=== PATIENT | female | born 1950 | race Caucasian/White ===

== ENCOUNTER 2018-01-08 02:09 | Inpatient (IN) | END 2018-01-11 14:38 | disposition home or self-care (01) | DRG 440 ==

== ENCOUNTER 2018-02-03 12:17 | Inpatient (IN) | END 2018-02-04 10:00 | disposition home or self-care (01) | DRG 690 ==

== ENCOUNTER 2018-02-23 11:27 | Emergency (ER) | payer OTHER ==
[~2018-02-23] VITALS: Wt 62.4 kg
[~2018-02-23 11:27] MED LIST: AMLO-218 PO; APIX5TAB PO; CARI350T29 PO; GABA100C14 PO; HYDR12.58 PO; LORA10TA3 PO; NITR0.4T32 SL; OMEP40CA6 PO; SULF-182 PO
[2018-02-23] MEDS ORDERED: morphine 4 MG/ML VIAL IV STA (14:46)
[2018-02-23] MEDS ORDERED: SOD CHLORIDE 0.9% 500 ML IV STA (14:46)
--- NOTE | 2018-02-23 15:04 | ERD ---
ER Documentation Chief Complaint Chief Complaint FEVER, DIARRHEA WITH LEFT SIDED FLANK PAIN HPI 67-year-old female presenting with left-sided abdominal pain that radiates across her abdomen with associated nonbloody diarrhea. She denies any associated nausea or vomiting. The pain is aching, constant, 7 out of 10, with no alleviating or exacerbating factors. She was unable to take her temperature at home but does complain of associated chills. Per her , they called Dr. Hernandez's office as she is under his care for her cholelithiasis. He states that he was told that she needed emergency surgery. It is unclear why. is unable to further elaborate. Patient denies any dysuria or hematuria. She does have a history of gallstones and is planned for outpatient surgery. ROS All systems reviewed and are negative except as per history of present illness. Medications Home Meds Active Scripts Apixaban* (Eliquis*) 5 Mg Tablet, 5 MG PO BID, #74 TAB take 2 tablets (10mg) twice daily for 7 days and then 1 tablet twice daily after that. Prov:SUYAPA WHELAN 01/11/18 Reported Medications Loratadine* (Loratadine*) 10 Mg Tablet, 10 MG PO DAILY, #30 TAB 01/08/18 Amlodipine Besylate* (Norvasc*) 10 Mg Tablet, 10 MG PO DAILY, TAB 01/08/18 Hydrochlorothiazide* (Hydrochlorothiazide*) 12.5 Mg Tablet, 12.5 MG PO DAILY, #30 TAB 01/08/18 Nitroglycerin* (Nitroglycerin* SL) 0.4 Mg Tab.subl, 0.4 MG SL Q5MIN PRN for CHEST PAIN, BOTTLE 01/08/18 Omeprazole* (Omeprazole*) 40 Mg Capsule.dr, 40 MG PO DAILY, #30 CAP 01/08/18 Gabapentin* (Gabapentin*) 100 Mg Capsule, 100 MG PO TID, #90 CAP 01/08/18 Carisoprodol* (Carisoprodol*) 350 Mg Tablet, 350 MG PO Q HS PRN for MUSCLE SPASMS, TAB 01/08/18 Discontinued Scripts Sulfamethoxazole/Trimethoprim (Sulfamethoxazole-Tmp Ds Tablet) 1 Each Tablet, 1 TAB PO BID for 5 Days, #10 TAB Prov:YASMIN DAVIS MD 02/04/18 Allergies Allergies: Coded Allergies: No Known Allergy (Unverified , 01/08/18) PMhx/Soc History of Surgery: No Anesthesia Reaction: No Hx Neurological Disorder: Yes (NEUROPATHY) Hx Respiratory Disorders: No Hx Cardiac Disorders: Yes (Cardiac disease, Hypertension, DVT, hypokalemia) Hx Psychiatric Problems: No Hx Miscellaneous Medical Probl: Yes (Biliary colic, Pancreatitis) Hx Alcohol Use: No Hx Substance Use: No Hx Tobacco Use: No FmHx Family History: No diabetes Physical Exam Vitals Vital Signs Date Temp Pulse Resp B/P (MAP) Pulse Ox O2 O2 Flow FiO2 Time Delivery Rate 02/23/18 98.1 77 15 112/57 97 Room Air 17:20 (75) 02/23/18 97.7 71 18 109/60 95 Room Air 15:53 (76) 02/23/18 98.1 88 18 131/75 99 11:32 (93) Physical Exam Const: No acute distress, well-appearing, nontoxic Head: Atraumatic Eyes: Normal Conjunctiva ENT: Normal External Ears, Nose and Mouth. Neck: Full range of motion. No meningismus. Resp: Clear to auscultation bilaterally Cardio: Regular rate and rhythm, no murmurs Abd: Soft, tender to palpation in left abdomen, non distended. No RUQ tenderness, negative Dyer's sign, no McBurney's pt tenderness. Normal bowel sounds Skin: No petechiae or rashes Back: No midline or flank tenderness Ext: No cyanosis, or edema Neur: Awake and alert Psych: Normal Mood and Affect Result Diagram: 02/23/18 1445 02/23/18 1445 Results 24 hrs Laboratory Tests Test 02/23/18 14:45 02/23/18 15:11 White Blood Count 6.4 10^3/ul Red Blood Count 4.50 10^6/ul Hemoglobin 12.0 g/dl Hematocrit 37.0 % Mean Corpuscular Volume 82.2 fl Mean Corpuscular Hemoglobin 26.7 pg Mean Corpuscular Hemoglobin Concent 32.4 g/dl Red Cell Distribution Width 12.9 % Platelet Count 191 10^3/UL Mean Platelet Volume 9.7 fl Immature Granulocytes % 0.300 % Neutrophils % 71.5 % Lymphocytes % 19.5 % Monocytes % 7.3 % Eosinophils % 0.9 % Basophils % 0.5 % Nucleated Red Blood Cells % 0.0 /100WBC Immature Granulocytes # 0.020 10^3/ul Neutrophils # 4.6 10^3/ul Lymphocytes # 1.3 10^3/ul Monocytes # 0.5 10^3/ul Eosinophils # 0.1 10^3/ul Basophils # 0.0 10^3/ul Nucleated Red Blood Cells # 0.0 10^3/ul Sodium Level 141 mmol/L Potassium Level 3.2 mmol/L Chloride Level 98 mmol/L Carbon Dioxide Level 33 mmol/L Anion Gap 10 Blood Urea Nitrogen 13 mg/dl Creatinine 0.63 mg/dl Est Glomerular Filtrat Rate mL/min > 60 mL/min Glucose Level 102 mg/dl Calcium Level 9.1 mg/dl Total Bilirubin 0.3 mg/dl Direct Bilirubin 0.00 mg/dl Indirect Bilirubin 0.3 mg/dl Aspartate Amino Transf (AST/SGOT) 40 IU/L Alanine Aminotransferase (ALT/SGPT) 37 IU/L Alkaline Phosphatase 83 IU/L Total Protein 7.7 g/dl Albumin 4.2 g/dl Globulin 3.50 g/dl Albumin/Globulin Ratio 1.20 Lipase 36 U/L Urine Color YELLOW Urine Clarity CLEAR Urine pH 7.0 Urine Specific [place] 1.009 Urine Ketones 1+ mg/dL Urine Nitrite NEGATIVE mg/dL Urine Bilirubin NEGATIVE mg/dL Urine Urobilinogen NEGATIVE mg/dL Urine Leukocyte Esterase 1+ Morris/ul Urine Microscopic RBC 3 /HPF Urine Microscopic WBC 6 /HPF Urine Hemoglobin 1+ mg/dL Urine Glucose NEGATIVE mg/dL Urine Total Protein NEGATIVE mg/dl Current Medications Medications Dose Sig/Yanet Start Time Status Last (Trade) Ordered Route PRN Stop Time Admin Dose Reason Admin Sodium 500 ml @ Q1H STAT 02/23/18 DC 02/23/18 Chloride 500 mls/hr IV 14:46 14:54 02/23/18 15:45 Morphine 4 mg ONCE STAT 02/23/18 DC 02/23/18 Sulfate IV 14:46 14:54 (morphine) 02/23/18 14:47 Potassium 40 meq ONCE STAT 02/23/18 DC 02/23/18 Chloride PO 16:47 17:16 (Klor-Con 20) 02/23/18 16:49 Procedures/MDM EMERGENT LABS AND DIAGNOSTIC STUDIES: Lab Results above were reviewed and interpreted by me. CBC: no anemia or evidence of infection CMP: mild hypokalemia. No evidence of renal failure, hypoglycemia, liver failure, or biliary obstruction Lipase: no evidence of pancreatitis UA: few WBCs, asymptomatic Radiology Results as interpreted by Radiology below were reviewed by Ceasar Stephen MD: CT Abdomen/Pelvis: IMPRESSION: 1. Findings suggestive of mild colitis, predominantly involving ascending colon and splenic flexure. 2. Colonic diverticulosis, without diverticulitis. 3. Status post hysterectomy. 4. No evidence of mass or lymphadenopathy. Chest x-ray shows no acute abnormalities Initial Nursing notes reviewed. Previous Medical Records requested via the Electronic Health Record. EMERGENCY DEPARTMENT COURSE / MEDICAL DECISION MAKING: Patient is presenting with left-sided abdominal pain and diarrhea. Vitals are stable and she is afebrile. CT does not show any signs of acute surgical abdomen. Labs are unremarkable other than mild hypokalemia, likely secondary to her diarrhea, for which she was given oral potassium supplementation. IV fluids and IV medications for pain were given with improvement of her symptoms. I feel the patient most likely has a viral gastroenteritis rather than a bacterial colitis. I recommended oral hydration and [id number] medications for pain control. I reassured her and her that she does not have an emergent surgical condition at this time. However if any of her symptoms worsen, she was instructed to return to the ER for reevaluation. Patient's blood pressure was elevated (>120/80) but appears stable without evidence of hypertensive emergency or urgency. The patient was counseled about the risks of hypertension and urged to pursue outpatient monitoring and therapy within a week with their primary care physician. Departure Diagnosis: Primary Impression: Abdominal pain Abdominal location: generalized Qualified Codes: R10.84 - Generalized abdominal pain Additional Impressions: Acute hypokalemia Colitis Condition: Stable EKEVERT PATINO MD Feb 23, 2018 15:04
[2018-02-23] MEDS ORDERED: POTASSIUM CHLORIDE (SR) 20 MEQ TAB PO STA (16:47)
[2018-02-23 17:20] VITALS: BP 112/57; PULSE 77; RESP 15
== END 2018-02-23 17:20 | disposition home or self-care (01) ==
LOC: E/R 11:27
DX: E87.6 Hypokalemia (principal); K52.9 Noninfective gastroenteritis and colitis, unspecified; I10 Essential (primary) hypertension
CPT/HCPCS: 71045; 74176; 80053; 81001; 83690; 85025; 96361; 96374; 99285; J2270; J7040

== ENCOUNTER 2018-04-01 15:31 | Inpatient (IN) | payer OTHER ==
[~2018-04-01] VITALS: Ht 154.9 cm; Wt 61.9 kg
[~2018-04-01 15:31] MED LIST changes: -SULF-182 PO
[2018-04-01] MEDS ORDERED: morphine 4 MG/ML VIAL IV STA (18:19)
[2018-04-01] MEDS ORDERED: ONDANSETRON 4 MG INJ IV STA ×2 (18:19→20:05)
[2018-04-01] MEDS ORDERED: SOD CHLORIDE 0.9% 1,000 ML IV STA ×2 (18:19→20:05)
--- NOTE | 2018-04-01 18:30 | ERD ---
ER Documentation Chief Complaint Chief Complaint pt bib family with c/o abd pain staring at noon HPI This is a 67-year-old female presents to the emergency department complaining of abdominal pain. The patient indicates that the abdominal pain is present in the left lower quadrant and right upper quadrant. She indicates that it is aggressively worsened over the past 6 hours. The patient has known history of cholelithiasis and has seen the surgeon Dr. Hernandez. She is currently waiting for outpatient cholecystectomy. She states that the pain is 10 out of 10 in intensity. She denies any hemoptysis no hematemesis and no melanotic stools. He said no fevers or shaking or chills. She denies any chest pain or pressure no shortness of breath at rest or exertion. She states the pain is cramping- like sensation in both the right upper quadrant and left lower quadrant. The pain does not radiate to her back. She said no frequency urgency or dysuria. ROS All systems reviewed and are negative except as per history of present illness. Medications Home Meds Active Scripts Apixaban* (Eliquis*) 5 Mg Tablet, 5 MG PO BID, #74 TAB take 2 tablets (10mg) twice daily for 7 days and then 1 tablet twice daily after that. Prov:SUYAPA WHELAN 01/11/18 Reported Medications Loratadine* (Loratadine*) 10 Mg Tablet, 10 MG PO DAILY, #30 TAB 01/08/18 Amlodipine Besylate* (Norvasc*) 10 Mg Tablet, 10 MG PO DAILY, TAB 01/08/18 Hydrochlorothiazide* (Hydrochlorothiazide*) 12.5 Mg Tablet, 12.5 MG PO DAILY, #30 TAB 01/08/18 Nitroglycerin* (Nitroglycerin* SL) 0.4 Mg Tab.subl, 0.4 MG SL Q5MIN PRN for CHEST PAIN, BOTTLE 01/08/18 Omeprazole* (Omeprazole*) 40 Mg Capsule.dr, 40 MG PO DAILY, #30 CAP 01/08/18 Gabapentin* (Gabapentin*) 100 Mg Capsule, 100 MG PO TID, #90 CAP 01/08/18 Carisoprodol* (Carisoprodol*) 350 Mg Tablet, 350 MG PO Q HS PRN for MUSCLE SPASMS, TAB 01/08/18 Allergies Allergies: Coded Allergies: No Known Allergy (Unverified , 01/08/18) PMhx/Soc History of Surgery: No Anesthesia Reaction: No Hx Neurological Disorder: Yes (NEUROPATHY) Hx Respiratory Disorders: No Hx Cardiac Disorders: Yes (Cardiac disease, Hypertension, DVT, hypokalemia) Hx Psychiatric Problems: No Hx Miscellaneous Medical Probl: Yes (Biliary colic, Pancreatitis) Hx Alcohol Use: No Hx Substance Use: No Hx Tobacco Use: No Physical Exam Vitals Vital Signs Date Temp Pulse Resp B/P (MAP) Pulse Ox O2 O2 Flow FiO2 Time Delivery Rate 04/01/18 98.3 84 18 120/67 99 15:43 (84) Physical Exam Constitutional:Well-developed. Well-nourished. HEENT:Normocephalic. Atraumatic.Pupils were equal round reactive to light. Moist mucous membranes.No tonsillar exudates. Neck: No nuchal rigidity. No lymphadenopathy. No posterior cervical spine tenderness or step-offs. Respiratory: Not using accessory muscles of respiration.Lungs were clear to auscultation bilaterally. No rhonchi. No rales. No wheezing. Cardiovascular: Regular rate regular rhythm.No murmurs. No rubs were appreciated.S1, S2 normal. Distal pulses are palpable 2+ bilaterally. GI: Abdomen was soft. Left lower quadrant tenderness. Tenderness in the right upper quadrant negative Dyer sign. No tenderness the right lower quadrant over McBurney's point. Psoas sign negative. Obturator sign negative.. Non Distended. No pulsatile abdominal masses or bruits. No rebound. No guarding. Bowel sounds were present and normal. Muscle skeletal: Full range of motion of both the upper and lower extremities bilaterally.Normal muscle tone.No assymetrical calf tenderness or swelling. Skin: No petechia, no purpura. No lesions on the palms or the soles of the feet. No maculopapular rash. NEURO: Patient was alert, awake, orientated x3.No facial droop. Gait observed and normal with no ataxia.Speech had regular rate and rhythm. No focal neurologi carlos deficits. Result Diagram: 04/01/18190604/01/181905 Results 24 hrs Laboratory Tests Test 04/01/18 19:06 04/01/18 19:07 Prothrombin Time 11.9 Sec Prothrombin Time Ratio 0.9 INR International Normalized Ratio 0.87 Activated Partial Thromboplast Time 26.6 Sec Urine Color YELLOW Urine Clarity CLEAR Urine pH 8.0 Urine Specific [place] 1.011 Urine Ketones NEGATIVE mg/dL Urine Nitrite NEGATIVE mg/dL Urine Bilirubin NEGATIVE mg/dL Urine Urobilinogen 2+ mg/dL Urine Leukocyte Esterase NEGATIVE Morris/ul Urine Hemoglobin NEGATIVE mg/dL Urine Glucose NEGATIVE mg/dL Urine Total Protein NEGATIVE mg/dl Sodium Level 140 mmol/L Potassium Level 3.0 mmol/L Chloride Level 99 mmol/L Carbon Dioxide Level 37 mmol/L Anion Gap 4 Blood Urea Nitrogen 17 mg/dl Creatinine 0.77 mg/dl Est Glomerular Filtrat Rate mL/min > 60 mL/min Glucose Level 129 mg/dl Calcium Level 9.6 mg/dl Total Bilirubin 0.4 mg/dl Direct Bilirubin 0.00 mg/dl Indirect Bilirubin 0.4 mg/dl Aspartate Amino Transf (AST/SGOT) 581 IU/L Alanine Aminotransferase (ALT/SGPT) 308 IU/L Alkaline Phosphatase 179 IU/L Troponin I < 0.012 ng/ml Total Protein 7.3 g/dl Albumin 4.2 g/dl Globulin 3.10 g/dl Albumin/Globulin Ratio 1.35 Amylase Level 537 U/L Lipase 5742 U/L White Blood Count 10.7 10^3/ul Red Blood Count 4.64 10^6/ul Hemoglobin 12.3 g/dl Hematocrit 37.8 % Mean Corpuscular Volume 81.5 fl Mean Corpuscular Hemoglobin 26.5 pg Mean Corpuscular Hemoglobin Concent 32.5 g/dl Red Cell Distribution Width 13.4 % Platelet Count 241 10^3/UL Mean Platelet Volume 9.2 fl Immature Granulocytes % 0.600 % Neutrophils % 79.7 % Lymphocytes % 12.8 % Monocytes % 6.6 % Eosinophils % 0.2 % Basophils % 0.1 % Nucleated Red Blood Cells % 0.0 /100WBC Immature Granulocytes # 0.060 10^3/ul Neutrophils # 8.6 10^3/ul Lymphocytes # 1.4 10^3/ul Monocytes # 0.7 10^3/ul Eosinophils # 0.0 10^3/ul Basophils # 0.0 10^3/ul Nucleated Red Blood Cells # 0.0 10^3/ul Current Medications Medications Dose Sig/Yanet Start Time Status Last (Trade) Ordered Route PRN Stop Time Admin Dose Reason Admin Sodium 1,000 ml @ Q1H STAT 04/01/18 DC 04/01/18 Chloride 1,000 mls/hr IV 18:19 19:15 04/01/18 19:18 Morphine 4 mg ONCE STAT 04/01/18 DC 04/01/18 Sulfate IV 18:19 19:15 (morphine) 04/01/18 18:21 Ondansetron 4 mg ONCE STAT 04/01/18 DC 04/01/18 HCl (Zofran IV 18:19 19:15 Inj) 04/01/18 18:21 Sodium 1,000 ml @ Q1H STAT 04/01/18 DC 04/01/18 Chloride 1,000 mls/hr IV 20:05 20:51 04/01/18 21:04 1 mg ONCE STAT 04/01/18 DC 04/01/18 Hydromorphone IV 20:05 20:51 HCl 04/01/18 20:09 (Dilaudid) Ondansetron 4 mg ONCE STAT 04/01/18 DC 04/01/18 HCl (Zofran IV 20:05 20:51 Inj) 04/01/18 20:09 Ondansetron 4 mg ER BRIDGE 04/01/18 HCl (Zofran PRN IV 20:30 Inj) NAUSEA/VOMITI 04/02/18 20:29 NG 650 mg ER BRIDGE 04/01/18 Acetaminophen PRN PO 20:30 (Tylenol .MILD PAIN 04/02/18 20:29 Tab) 1-3 OR TEMP IV Flush 10 ml STK-MED 04/01/18 DC (NS 10 ml) ONCE .ROUTE 20:50 04/01/18 20:51 Sodium 100 ml @ ud STK-MED 04/01/18 DC Chloride ONCE .ROUTE 20:50 04/01/18 20:51 Iohexol 150 ml STK-MED 04/01/18 DC (Omnipaque ONCE .ROUTE 20:50 300mg/ ml) 04/01/18 20:51 Sodium 1,000 ml @ Q8H IV 04/01/18 UNV Chloride 125 mls/hr 20:56 IV Flush 3 ml PER 04/01/18 UNV (NS 3 ml) PROTOCOL IV 21:00 Ondansetron 4 mg Q6H PRN 04/01/18 UNV HCl (Zofran IV 21:00 Inj) NAUSEA/VOMITI NG 650 mg Q6H PRN 04/01/18 Acetaminophen MS .PAIN 1-3 21:00 (Tylenol OR TEMP Supp) Morphine 2 mg Q4H PRN 04/01/18 UNV Sulfate IV .PAIN 21:00 (morphine) 7-10 40 mg DAILY@06 04/02/18 UNV Pantoprazole IV 06:00 (Protonix Iv) Hydralazine 10 mg Q4H PRN 04/01/18 UNV HCl IV sbp >160 21:00 (Apresoline) Potassium 100 ml @ Q2H IVPB 04/01/18 UNV Chloride 50 mls/hr 21:30 04/02/18 05:29 Procedures/MDM This patient presented to the emergency department with abdominal pain and was seen and evaluated by myself. My differential diagnosis included but was not limited to abdominal aortic aneurysm, appendicitis, pancreatitis, perforated pep tic ulcer, perforated viscus, Boerhaave's syndrome or visceral pain such as diverticulitis, DKA, esophagitis, hepatitis or bowel obstruction. The patient was placed on a parts specialist, continuous pulse oximetry, and IV access was established by nursing staff. The patient was given intravenous mo rphine and Zofran. The patient's liver enzymes were elevated as well as her pancreatic enzymes. ultrasound of the gallbladder did confirm cholelithiasis. I reviewed the records from previous hospital visits and the patient was here roughly 1 month ago for similar pain. She underwent a CT scan of her abdomen that time which did show diverticulosis. However given the recurrent pain I did feel is necessary to repeat the CT scan. This is reviewed by the radiologist myself and indicated the following: The patient will be admitted to the hospitalist. Departure Diagnosis: Primary Impression: Pancreatitis Chronicity: acute Pancreatitis type: unspecified pancreatitis type Acute pancreatitis complication: unspecified Qualified Codes: K85.90 - Acute pancreatitis without necrosis or infection, unspecified Additional Impressions: Cholelithiasis Cholelithiasis location: gallbladder Cholecystitis presence: without cholecystitis Biliary obstruction: without biliary obstruction Qualified Codes: K80.20 - Calculus of gallbladder without cholecystitis without obstruction Intractable abdominal pain Condition: Serious GT ZHOU MD Apr 01, 2018 18:30
[2018-04-01] MEDS ORDERED: HYDROmorphONE 1 MG/ML SYG IV STA (20:05)
[2018-04-01] MEDS ORDERED: ACETAMINOPHEN 325 MG TAB PO PRN (20:30)
[2018-04-01] MEDS ORDERED: ONDANSETRON 4 MG INJ IV PRN ×2 (20:30→21:00)
[2018-04-01] MEDS ORDERED: SOD CHLORIDE 0.9% 100 ML ONE (20:50)
[2018-04-01] MEDS ORDERED: IOHEXOL 300MG/ML 150 ML BTL ONE (20:50)
[2018-04-01] MEDS ORDERED: morphine 2 MG INJ IV PRN (21:00)
[2018-04-01] MEDS ORDERED: hydrALAzine 20 MG INJ IV PRN (21:00)
[2018-04-01] MEDS ORDERED: NACL 0.9% 3 ML SYG IV SCH (21:00)
[2018-04-01] MEDS ORDERED: ACETAMINOPHEN 650 MG SUPP PR PRN (21:00)
--- NOTE | 2018-04-01 21:22 | HP ---
Date/Time of Note Date/Time of Note DATE: 04/01/18 TIME: 21:22 Assessment/Plan VTE Prophylaxis Pharmacological prophylaxis: other Lines/Catheters IV Catheter Type (from Nrs): Saline Lock Assessment/Plan Hospital Course Objective Physical exam General: Patient is laying in bed and answers questions appropriately Mentation: Patient is alert and oriented 4, Head: Normocephalic atraumatic Eyes: EOMI, pupils reactive to light Neck: Supple, nontender, midline Respiratory: Clear to auscultation bilaterally Cardiovascular: regular rate, no obvious murmurs Gastrointestinal: Epigastric and left upper quadrant tenderness to palpation, bowel sounds heard. Neurological: Moves all extremities spontaneously Skin: No new skin lesions Assessment and plan Pancreatitis, possibly gallstone -Bilirubin is normal, however AST and ALT are elevated, possible that it was a gallstone that did pass already, -CT of the abdomen and pelvis is still pending, ultrasound shows gallstones but no cholecystitis, no biliary ductal dilation -Patient was following with Dr. Hernandez in the outpatient setting and was planning on elective gallbladder removal however due to this hospitalization will consult Dr. Hernandez again, recommendations appreciated -GI, Dr. Ocasio, will also be consulted, no clear evidence of obstruction except for mild AST and ALT elevation, MRCP is pending -IV fluid -N.p.o. -Pain control Abdominal pain -Secondary to above Electrolyte derangement -Replete potassium as needed Lower extremity DVT history -On Eliquis, however will hold for possible procedure or surgery tomorrow if GI or surgery decides to. Hypertension -Use as needed medication, resume orals when able GERD -Protonix Disposition -MRCP pending, GI and general surgery consultation pending. Result Diagram: 04/01/18190604/01/181905 Results 24hrs Laboratory Tests Test 04/01/18 19:06 04/01/18 19:07 Prothrombin Time 11.9 Prothrombin Time Ratio 0.9 INR International Normalized Ratio 0.87 Activated Partial Thromboplast Time 26.6 Urine Color YELLOW Urine Clarity CLEAR Urine pH 8.0 Urine Specific [place] 1.011 Urine Ketones NEGATIVE Urine Nitrite NEGATIVE Urine Bilirubin NEGATIVE Urine Urobilinogen 2+ H Urine Leukocyte Esterase NEGATIVE Urine Hemoglobin NEGATIVE Urine Glucose NEGATIVE Urine Total Protein NEGATIVE Sodium Level 140 Potassium Level 3.0 L Chloride Level 99 Carbon Dioxide Level 37 H Anion Gap 4 L Blood Urea Nitrogen 17 Creatinine 0.77 Est Glomerular Filtrat Rate mL/min > 60 Glucose Level 129 Calcium Level 9.6 Total Bilirubin 0.4 Direct Bilirubin 0.00 Indirect Bilirubin 0.4 Aspartate Amino Transf (AST/SGOT) 581 H Alanine Aminotransferase (ALT/SGPT) 308 H Alkaline Phosphatase 179 H Troponin I < 0.012 Total Protein 7.3 Albumin 4.2 Globulin 3.10 Albumin/Globulin Ratio 1.35 Amylase Level 537 H Lipase 5742 H White Blood Count 10.7 # Red Blood Count 4.64 Hemoglobin 12.3 Hematocrit 37.8 Mean Corpuscular Volume 81.5 L Mean Corpuscular Hemoglobin 26.5 L Mean Corpuscular Hemoglobin Concent 32.5 Red Cell Distribution Width 13.4 Platelet Count 241 # Mean Platelet Volume 9.2 Immature Granulocytes % 0.600 H Neutrophils % 79.7 H Lymphocytes % 12.8 L Monocytes % 6.6 Eosinophils % 0.2 Basophils % 0.1 Nucleated Red Blood Cells % 0.0 Immature Granulocytes # 0.060 H Neutrophils # 8.6 H Lymphocytes # 1.4 Monocytes # 0.7 Eosinophils # 0.0 Basophils # 0.0 Nucleated Red Blood Cells # 0.0 HPI/ROS Admit Date/Time Admit Date/Time Hx of Present Illness Patient is a female with a past medical history significant for gallstone pancreatitis, hypertension, lower extremity DVT who presents to [facility] for abdominal pain. Patient states this is exactly the her previous bouts of pancreatitis and pain upon the epigastric region. Patient states pain started approximately 6 hours ago. Patient denies any chest pain, shortness of breath, bowel or bladder dysfunction, nausea vomiting, no fevers. Pain does not radiate to the back PMH/Family/Social Past Medical History Medications Current Medications Ondansetron HCl (Zofran Inj) 4 mg ER BRIDGE PRN IV NAUSEA/VOMITING; Start 04/01/18 at 20:30; Stop 04/02/18 at 20:29 Acetaminophen (Tylenol Tab) 650 mg ER BRIDGE PRN PO .MILD PAIN 1-3 OR TEMP; Start 04/01/18 at 20:30; Stop 04/02/18 at 20:29 Sodium Chloride 1,000 ml @ 125 mls/hr Q8H IV ; Start 04/01/18 at 20:56 IV Flush (NS 3 ml) 3 ml PER PROTOCOL IV ; Start 04/01/18 at 21:00 Ondansetron HCl (Zofran Inj) 4 mg Q6H PRN IV NAUSEA/VOMITING; Start 04/01/18 at 21:00 Acetaminophen (Tylenol Supp) 650 mg Q6H PRN [place] .PAIN 1-3 OR TEMP; Start 03/16 08/31 at 21:00 Morphine Sulfate (morphine) 2 mg Q4H PRN IV .PAIN 7-10; Start 04/01/18 at 21:00 Pantoprazole (Protonix Iv) 40 mg DAILY@06 IV ; Start 04/02/18 at 06:00 Hydralazine HCl (Apresoline) 10 mg Q4H PRN IV sbp >160; Start 04/01/18 at 21:00 Potassium Chloride 100 ml @ 50 mls/hr Q2H IVPB ; Start 04/01/18 at 21:30; Stop 04/02/18 at 05:29 Coded Allergies: No Known Allergy (Unverified , 01/08/18) Past Surgical History Past Surgical Hx: other Family History Significant Family History: no pertinent family hx Social History Smoking Status: Never smoker Exam/Review of Systems Vital Signs Vitals Vital Signs Date Temp Pulse Resp B/P (MAP) Pulse Ox O2 O2 Flow FiO2 Time Delivery Rate 04/01/18 73 12 110/65 98 Room Air 21:16 (80) 04/01/18 98.3 15:43 MICAELA MCCRAY Apr 01, 2018 21:22
[2018-04-01 21:45] VITALS: BP 125/57; PULSE 73; RESP 20
[2018-04-01 21:47] VITALS: PULSE 68
[2018-04-01 22:06] VITALS: Ht 154.9 cm; Wt 61.9 kg
[2018-04-01] MEDS: SOD CHLORIDE 0.9% 1,000 ML IV SCH (22:27)
[2018-04-01] MEDS: POTASSIUM CHLORIDE 100 ML IVPB SCH (22:27)
[2018-04-01 23:47] VITALS: BP 112/55; PULSE 65; RESP 18
[2018-04-02] VITALS (10 sets, daily range): BP systolic 89–123; BP diastolic 53–64; PULSE 59–69; RESP 18–19
[2018-04-02] MEDS: POTASSIUM CHLORIDE 100 ML IVPB SCH ×3 (00:24→05:30)
[2018-04-02] MEDS: SOD CHLORIDE 0.9% 1,000 ML IV SCH ×4 (04:56→23:54)
[2018-04-02] MEDS: PANTOPRAZOLE 40 MG INJ IV SCH (05:31)
--- NOTE | 2018-04-02 10:29 | PN ---
Date/Time of Note Date/Time of Note DATE: 04/02/18 TIME: 10:24 Assessment/Plan VTE Prophylaxis Risk score (from Nsg)>0 risk: 6 SCD applied (from Nsg): Yes Pharmacological prophylaxis: LMWH Lines/Catheters IV Catheter Type (from Nrsg): Peripheral IV Assessment/Plan Hospital Course Objective: pain is better, wants to know what time her surgery will be done Physical exam General: Patient is laying in bed and answers questions appropriately Mentation: Patient is alert and oriented 4, Head: Normocephalic atraumatic Eyes: EOMI, pupils reactive to light Neck: Supple, nontender, midline Respiratory: Clear to auscultation bilaterally Cardiovascular: regular rate, no obvious murmurs Gastrointestinal: Epigastric and left upper quadrant tenderness to palpation, bowel sounds heard. Neurological: Moves all extremities spontaneously Skin: No new skin lesions Assessment and plan 1. Recurrent Pancreatitis, possibly gallstone -Bilirubin is normal, however AST and ALT are elevated, possible that it was a gallstone that did pass already, -CT of the abdomen and pelvis negative for acute process , ultrasound shows gallstones but no cholecystitis, no biliary ductal dilation -Patient was following with Dr. Hernandez in the outpatient setting and was planning on elective gallbladder removal prior to this hospitalization, await review and recommendations appreciated -f/u MRCP -Continue IV fluid -Continue N.p.o. /PPI -Pain control -spoke with sx, has to be off eliquis for at least 3 days 2. Abdominal pain -Secondary to above 3. Electrolyte derangement -Replete potassium as needed 4. Lower extremity DVT history -On Eliquis, however will hold for possible procedure or surgery tomorrow if GI or surgery decides to. -repeat LE dopplers 5. Hypertension -resume home meds 6. h/o GERD -Protonix Disposition -f/u MRCP, lipase levels and surgical recs Result Diagram: 04/02/18 0612 04/02/18 0612 Results 24hrs Laboratory Tests Test 04/01/18 19:06 04/01/18 19:07 04/02/18 06:12 Prothrombin Time 11.9 Prothrombin Time Ratio 0.9 INR International Normalized Ratio 0.87 Activated Partial Thromboplast Time 26.6 Urine Color YELLOW Urine Clarity CLEAR Urine pH 8.0 Urine Specific [place] 1.011 Urine Ketones NEGATIVE Urine Nitrite NEGATIVE Urine Bilirubin NEGATIVE Urine Urobilinogen 2+ H Urine Leukocyte Esterase NEGATIVE Urine Hemoglobin NEGATIVE Urine Glucose NEGATIVE Urine Total Protein NEGATIVE Sodium Level 140 141 Potassium Level 3.0 L 4.2 Chloride Level 99 103 Carbon Dioxide Level 37 H 29 Anion Gap 4 L 9 # Blood Urea Nitrogen 17 9 Creatinine 0.77 0.60 Est Glomerular Filtrat Rate mL/min > 60 > 60 Glucose Level 129 104 Calcium Level 9.6 8.7 Total Bilirubin 0.4 0.5 Direct Bilirubin 0.00 0.00 Indirect Bilirubin 0.4 0.5 Aspartate Amino Transf (AST/SGOT) 581 H 233 H Alanine Aminotransferase (ALT/SGPT) 308 H 273 H Alkaline Phosphatase 179 H 132 H Troponin I < 0.012 Total Protein 7.3 6.6 Albumin 4.2 3.7 Globulin 3.10 2.90 Albumin/Globulin Ratio 1.35 1.27 Amylase Level 537 H Lipase 5742 H White Blood Count 10.7 # 7.0 # Red Blood Count 4.64 4.12 L Hemoglobin 12.3 11.1 L Hematocrit 37.8 34.2 L Mean Corpuscular Volume 81.5 L 83.0 Mean Corpuscular Hemoglobin 26.5 L 26.9 L Mean Corpuscular Hemoglobin Concent 32.5 32.5 Red Cell Distribution Width 13.4 13.6 Platelet Count 241 # 240 Mean Platelet Volume 9.2 9.8 Immature Granulocytes % 0.600 H 0.300 Neutrophils % 79.7 H 71.0 Lymphocytes % 12.8 L 19.7 Monocytes % 6.6 7.7 Eosinophils % 0.2 1.0 Basophils % 0.1 0.3 Nucleated Red Blood Cells % 0.0 0.0 Immature Granulocytes # 0.060 H 0.020 Neutrophils # 8.6 H 5.0 Lymphocytes # 1.4 1.4 Monocytes # 0.7 0.5 Eosinophils # 0.0 0.1 Basophils # 0.0 0.0 Nucleated Red Blood Cells # 0.0 0.0 Magnesium Level 1.9 Triglycerides Level 65 Cholesterol Level 176 LDL Cholesterol, Calculated 103 HDL Cholesterol 60 Cholesterol/HDL Ratio 2.9 Exam/Review of Systems Exam Vitals Vital Signs Date Temp Pulse Resp B/P (MAP) Pulse Ox O2 O2 Flow FiO2 Time Delivery Rate 04/02/18 97.9 62 19 123/59 100 08:27 (80) 04/01/18 Room Air 21:45 Intake and Output 04/01/18 04/01/18 04/02/18 1515:00 23:00 07:00 IntakeIntake Total 1000 ml 1000 ml BalanceBalance 1000 ml 1000 ml Results Results 24hrs Laboratory Tests Test 04/01/18 19:06 04/01/18 19:07 04/02/18 06:12 Prothrombin Time 11.9 Prothrombin Time Ratio 0.9 INR International Normalized Ratio 0.87 Activated Partial Thromboplast Time 26.6 Urine Color YELLOW Urine Clarity CLEAR Urine pH 8.0 Urine Specific [place] 1.011 Urine Ketones NEGATIVE Urine Nitrite NEGATIVE Urine Bilirubin NEGATIVE Urine Urobilinogen 2+ H Urine Leukocyte Esterase NEGATIVE Urine Hemoglobin NEGATIVE Urine Glucose NEGATIVE Urine Total Protein NEGATIVE Sodium Level 140 141 Potassium Level 3.0 L 4.2 Chloride Level 99 103 Carbon Dioxide Level 37 H 29 Anion Gap 4 L 9 # Blood Urea Nitrogen 17 9 Creatinine 0.77 0.60 Est Glomerular Filtrat Rate mL/min > 60 > 60 Glucose Level 129 104 Calcium Level 9.6 8.7 Total Bilirubin 0.4 0.5 Direct Bilirubin 0.00 0.00 Indirect Bilirubin 0.4 0.5 Aspartate Amino Transf (AST/SGOT) 581 H 233 H Alanine Aminotransferase (ALT/SGPT) 308 H 273 H Alkaline Phosphatase 179 H 132 H Troponin I < 0.012 Total Protein 7.3 6.6 Albumin 4.2 3.7 Globulin 3.10 2.90 Albumin/Globulin Ratio 1.35 1.27 Amylase Level 537 H Lipase 5742 H White Blood Count 10.7 # 7.0 # Red Blood Count 4.64 4.12 L Hemoglobin 12.3 11.1 L Hematocrit 37.8 34.2 L Mean Corpuscular Volume 81.5 L 83.0 Mean Corpuscular Hemoglobin 26.5 L 26.9 L Mean Corpuscular Hemoglobin Concent 32.5 32.5 Red Cell Distribution Width 13.4 13.6 Platelet Count 241 # 240 Mean Platelet Volume 9.2 9.8 Immature Granulocytes % 0.600 H 0.300 Neutrophils % 79.7 H 71.0 Lymphocytes % 12.8 L 19.7 Monocytes % 6.6 7.7 Eosinophils % 0.2 1.0 Basophils % 0.1 0.3 Nucleated Red Blood Cells % 0.0 0.0 Immature Granulocytes # 0.060 H 0.020 Neutrophils # 8.6 H 5.0 Lymphocytes # 1.4 1.4 Monocytes # 0.7 0.5 Eosinophils # 0.0 0.1 Basophils # 0.0 0.0 Nucleated Red Blood Cells # 0.0 0.0 Magnesium Level 1.9 Triglycerides Level 65 Cholesterol Level 176 LDL Cholesterol, Calculated 103 HDL Cholesterol 60 Cholesterol/HDL Ratio 2.9 Medications Medication Current Medications Ondansetron HCl (Zofran Inj) 4 mg ER BRIDGE PRN IV NAUSEA/VOMITING; Start 04/01/18 at 20:30; Stop 04/02/18 at 20:29 Acetaminophen (Tylenol Tab) 650 mg ER BRIDGE PRN PO .MILD PAIN 1-3 OR TEMP; Start 04/01/18 at 20:30; Stop 04/02/18 at 20:29 Sodium Chloride 1,000 ml @ 125 mls/hr Q8H IV Last administered on 04/01/18at 22:27; Admin Dose 125 MLS/HR; Start 04/01/18 at 20:56 IV Flush (NS 3 ml) 3 ml PER PROTOCOL IV ; Start 04/01/18 at 21:00 Ondansetron HCl (Zofran Inj) 4 mg Q6H PRN IV NAUSEA/VOMITING; Start 04/01/18 at 21:00 Acetaminophen (Tylenol Supp) 650 mg Q6H PRN [place] .PAIN 1-3 OR TEMP; Start 04/01/18 at 21:00 Morphine Sulfate (morphine) 2 mg Q4H PRN IV .PAIN 7-10; Start 04/01/18 at 21:00 Pantoprazole (Protonix Iv) 40 mg DAILY@06 IV Last administered on 04/02/18at 05:31; Admin Dose 40 MG; Start 04/02/18 at 06:00 Hydralazine HCl (Apresoline) 10 mg Q4H PRN IV sbp >160; Start 04/01/18 at 21:00 SUYAPA WHELAN Apr 02, 2018 10:29
[2018-04-02] MEDS: AMLODIPINE 10 MG TAB PO SCH (10:48)
[2018-04-02] MEDS: HYDROCHLOROTHIAZIDE 12.5 MG CAP PO SCH (10:48)
[2018-04-02] MEDS: GABAPENTIN 100 MG CAP PO SCH ×2 (13:14→21:01)
--- NOTE | 2018-04-02 14:59 | CONS ---
Assessment/Plan Assessment/Plan Assessment/Plan (Daily) Summary Assessment and Plan: Assessment: Gallstone pancreatitis -MRCP pending to rule out choledocholithiasis DVT - on eliquis HTN Pyrosis- on PPI Plan: MRCP pending Keep n.p.o./IV fluids- Monitor labs If MRCP is positive we will move forward ERCP. Surgical consult for possible cholecystectomy- given recurrent gallstone pancreatitis Patient seen in collaboration with Dr. Wilson CC: ANANT WILSON ; Consultation Date/Type/Reason Admit Date/Time Date of Consultation: Apr 02, 2018 Type of Consult GI Reason for Consultation Gallstone pancreatitis Date/Time of Note DATE: 04/02/18 TIME: 14:56 Hx of Present Illness This is a 67-year-old female vwith past medical history of DVT, attention, and recurrence gallstone pancreatitis. Who presented to [facility] with progressive upper abdominal pain patient states this is exactly how her pancreatitis felt previously. GI has been consulted for further evaluation. Currently an MRCP is pending to rule out choledocholithiasis AST/ALT/alkaline phosphatase trending down from yesterday, of note bilirubin has been normal both days. Initially patient with elevated amylase and lipase. Today lipase is within normal limits however patient continues to complain of upper abdominal pain. Will await results of MRCP if positive we will move forward with ERCP Review of Systems: [A 12 system, review was conducted and is negative except as noted in the HPI or here.] Gastrointestinal and liver: [As noted in HPI] [positive for:] [Negative for: Anorexia, dysphagia, odynophagia, pyrosis, regurgitation, nausea, vomiting, early satiety, bloating, abdominal pain, food intolerance, diarrhea, constipation, change in bowel habits, laxative use, hematemesis, melena, hematochezia, and rectal symptoms, incontinence, jaundice.] Past Medical History Home Meds Active Scripts Apixaban* (Eliquis*) 5 Mg Tablet, 5 MG PO BID, #74 TAB take 2 tablets (10mg) twice daily for 7 days and then 1 tablet twice daily after that. Prov:YUKI WHELANJanae Camargo 01/11/18 Reported Medications Loratadine* (Loratadine*) 10 Mg Tablet, 10 MG PO DAILY, #30 TAB 01/08/18 Amlodipine Besylate* (Norvasc*) 10 Mg Tablet, 10 MG PO DAILY, TAB 01/08/18 Hydrochlorothiazide* (Hydrochlorothiazide*) 12.5 Mg Tablet, 12.5 MG PO DAILY, #30 TAB 01/08/18 Nitroglycerin* (Nitroglycerin* SL) 0.4 Mg Tab.subl, 0.4 MG SL Q5MIN PRN for CHEST PAIN, BOTTLE 01/08/18 Omeprazole* (Omeprazole*) 40 Mg Capsule.dr, 40 MG PO DAILY, #30 CAP 01/08/18 Gabapentin* (Gabapentin*) 100 Mg Capsule, 100 MG PO TID, #90 CAP 01/08/18 Carisoprodol* (Carisoprodol*) 350 Mg Tablet, 350 MG PO Q HS PRN for MUSCLE SPASMS, TAB 01/08/18 Medications Current Medications Sodium Chloride 1,000 ml @ 125 mls/hr Q8H IV Last administered on 04/02/18at 13:00; Admin Dose 125 MLS/HR; Start 04/01/18 at 20:56 IV Flush (NS 3 ml) 3 ml PER PROTOCOL IV ; Start 04/01/18 at 21:00 Ondansetron HCl (Zofran Inj) 4 mg Q6H PRN IV NAUSEA/VOMITING; Start 04/01/18 at 21:00 Acetaminophen (Tylenol Supp) 650 mg Q6H PRN [place] .PAIN 1-3 OR TEMP; Start 04/01/18 at 21:00 Morphine Sulfate (morphine) 2 mg Q4H PRN IV .PAIN 7-10; Start 04/01/18 at 21:00 Pantoprazole (Protonix Iv) 40 mg DAILY@06 IV Last administered on 04/02/18at 05:31; Admin Dose 40 MG; Start 04/02/18 at 06:00 Hydralazine HCl (Apresoline) 10 mg Q4H PRN IV sbp >160; Start 04/01/18 at 21:00 Amlodipine Besylate (Norvasc) 10 mg DAILY PO Last administered on 04/02/18at 10:48; Admin Dose 10 MG; Start 04/02/18 at 10:30 Gabapentin (Neurontin) 100 mg TID PO Last administered on 04/02/18at 13:14; Admin Dose 100 MG; Start 04/02/18 at 13:00 Hydrochlorothiazide (Hydrochlorothiazide) 12.5 mg DAILY PO Last administered on 04/02/18at 10:48; Admin Dose 12.5 MG; Start 04/02/18 at 10:30 Allergies: Coded Allergies: No Known Allergy (Unverified , 01/08/18) Past Surgical History Past Surgical Hx: other Social History Smoking Status: Never smoker Exam/Review of Systems Exam Vitals Vital Signs Date Temp Pulse Resp B/P (MAP) Pulse Ox O2 O2 Flow FiO2 Time Delivery Rate 04/02/18 66 12:00 04/02/18 98.6 19 89/53 (65) 97 11:46 04/01/18 Room Air 21:45 Intake and Output 04/01/18 04/01/18 04/02/18 1414:59 22:59 06:59 IntakeIntake Total 1000 ml 1000 ml BalanceBalance 1000 ml 1000 ml Constitutional: alert, oriented Psych: no complaints, nl mood/affect Head: normocephalic Eyes: nl conjunctiva ENMT: nl external ears & nose Neck: supple, non-tender Respiratory: clear to auscultation Cardiovascular: regular rate and rhythm, nl pulses Gastrointestinal: soft, bowel sounds, tender (upper abd) Musculoskeletal: nl extremities to inspection Results Result Diagram: 04/02/18 0612 04/02/18 0612 Results 24hrs Laboratory Tests Test 04/01/18 19:06 04/01/18 19:07 04/02/18 06:09 04/02/18 06:12 Prothrombin Time 11.9 Prothrombin Time 0.9 Ratio INR International 0.87 Normalized Ratio Activated 26.6 Partial Thromboplast Time Urine Color YELLOW Urine Clarity CLEAR Urine pH 8.0 Urine Specific 1.011 [place] Urine Ketones NEGATIVE Urine Nitrite NEGATIVE Urine Bilirubin NEGATIVE Urine Urobilinogen 2+ H Urine Leukocyte NEGATIVE Esterase Urine Hemoglobin NEGATIVE Urine Glucose NEGATIVE Urine Total Protein NEGATIVE Sodium Level 140 141 Potassium Level 3.0 L 4.2 Chloride Level 99 103 Carbon Dioxide Level 37 H 29 Anion Gap 4 L 9 # Blood Urea Nitrogen 17 9 Creatinine 0.77 0.60 Est Glomerular > 60 > 60 Filtrat Rate mL/min Glucose Level 129 104 Calcium Level 9.6 8.7 Total Bilirubin 0.4 0.5 Direct Bilirubin 0.00 0.00 Indirect Bilirubin 0.4 0.5 Aspartate Amino 581 H 233 H Transf (AST/SGOT) Alanine 308 H 273 H Aminotransferase (AL T/SGPT) Alkaline Phosphatase 179 H 132 H Troponin I < 0.012 Total Protein 7.3 6.6 Albumin 4.2 3.7 Globulin 3.10 2.90 Albumin/Globulin 1.35 1.27 Ratio Amylase Level 537 H Lipase 5742 H 193 White Blood Count 10.7 # 7.0 # Red Blood Count 4.64 4.12 L Hemoglobin 12.3 11.1 L Hematocrit 37.8 34.2 L Mean Corpuscular 81.5 L 83.0 Volume Mean Corpuscular 26.5 L 26.9 L Hemoglobin Mean Corpuscular 32.5 32.5 Hemoglobin Concent Red Cell 13.4 13.6 Distribution Width Platelet Count 241 # 240 Mean Platelet Volume 9.2 9.8 Immature 0.600 H 0.300 Granulocytes % Neutrophils % 79.7 H 71.0 Lymphocytes % 12.8 L 19.7 Monocytes % 6.6 7.7 Eosinophils % 0.2 1.0 Basophils % 0.1 0.3 Nucleated Red Blood 0.0 0.0 Cells % Immature 0.060 H 0.020 Granulocytes # Neutrophils # 8.6 H 5.0 Lymphocytes # 1.4 1.4 Monocytes # 0.7 0.5 Eosinophils # 0.0 0.1 Basophils # 0.0 0.0 Nucleated Red Blood 0.0 0.0 Cells # Magnesium Level 1.9 Triglycerides Level 65 Cholesterol Level 176 LDL Cholesterol, 103 Calculated HDL Cholesterol 60 Cholesterol/HDL 2.9 Ratio Medications Medication Current Medications Sodium Chloride 1,000 ml @ 125 mls/hr Q8H IV Last administered on 04/02/18at 13:00; Admin Dose 125 MLS/HR; Start 04/01/18 at 20:56 IV Flush (NS 3 ml) 3 ml PER PROTOCOL IV ; Start 04/01/18 at 21:00 Ondansetron HCl (Zofran Inj) 4 mg Q6H PRN IV NAUSEA/VOMITING; Start 04/01/18 at 21:00 Acetaminophen (Tylenol Supp) 650 mg Q6H PRN [place] .PAIN 1-3 OR TEMP; Start 04/01/18 at 21:00 Morphine Sulfate (morphine) 2 mg Q4H PRN IV .PAIN 7-10; Start 04/01/18 at 21:00 Pantoprazole (Protonix Iv) 40 mg DAILY@06 IV Last administered on 04/02/18 05:31; Admin Dose 40 MG; Start 04/02/18 at 06:00 Hydralazine HCl (Apresoline) 10 mg Q4H PRN IV sbp >160; Start 04/01/18 at 21:00 Amlodipine Besylate (Norvasc) 10 mg DAILY PO Last administered on 04/02/18at 10:48; Admin Dose 10 MG; Start 04/02/18 at 10:30 Gabapentin (Neurontin) 100 mg TID PO Last administered on 04/02/18at 13:14; Admin Dose 100 MG; Start 04/02/18 at 13:00 Hydrochlorothiazide (Hydrochlorothiazide) 12.5 mg DAILY PO Last administered on 04/02/18 10:48; Admin Dose 12.5 MG; Start 04/02/18 at 10:30 FOREST REDDY Apr 02, 2018 14:59
[2018-04-03] VITALS (10 sets, daily range): BP systolic 104–127; BP diastolic 57–78; PULSE 61–76; RESP 18
[2018-04-03] MEDS ORDERED: FAMOTIDINE 20 MG INJ IV ONE
[2018-04-03] MEDS: PANTOPRAZOLE 40 MG INJ IV SCH (05:50)
[2018-04-03] MEDS: SOD CHLORIDE 0.9% 1,000 ML IV SCH ×2 (07:25→18:47)
[2018-04-03] MEDS: GABAPENTIN 100 MG CAP PO SCH ×3 (08:56→21:06)
[2018-04-03] MEDS: AMLODIPINE 10 MG TAB PO SCH (08:57)
[2018-04-03] MEDS: HYDROCHLOROTHIAZIDE 12.5 MG CAP PO SCH (08:57)
[2018-04-03] MEDS: POTASSIUM CHLORIDE (SR) 20 MEQ TAB PO SCH ×2 (10:55→14:48)
[2018-04-03] MEDS: FLUTICASONE 0.05% 16 GM NAS SPRAY NASAL SCH ×2 (10:56→21:06)
--- NOTE | 2018-04-03 12:20 | PN ---
Date/Time of Note Date/Time of Note DATE: 04/03/18 TIME: 12:07 Assessment/Plan Lines/Catheters IV Catheter Type (from Nrsg): Peripheral IV Waters in Place (from Nrs): No Assessment/Plan Chief Complaint/Hosp Course 1. GS pancreatitis: resolved -ivf 2. Cholelithiasis no evidence of cholecystitis -eventual sx later this week as pt was on eliquis (currently on hold) -ok for diet- clears and advance as magi 3. transaminitis: improving -as jarred 4. Abd pain: improved -cruz mgt 5.lower extr dvt hx. on eliquis at home -hold eliquis as above -ok for heparin > per med team 6. HTN -nutrition and medication optimization -encourage diet and exercise 7. GERD -nutrition and lifestyle optimization -antacids Thank you. Patient seen and examined in collaboration with Dr. Ramon Hernandez. Subjective 24 Hr Interval Summary Abd pain improved. No fevers, chills, sob, congested cough, cp, palpitations, galeano, dizziness, n/v/d/dysuria. Exam/Review of Systems Vital Signs Vitals Vital Signs Date Temp Pulse Resp B/P (MAP) Pulse Ox O2 O2 Flow FiO2 Time Delivery Rate 04/03/18 97.9 69 18 127/78 97 Room Air 11:20 (94) Intake and Output 04/02/18 04/02/18 04/03/18 1515:00 23:00 07:00 IntakeIntake Total 1300 ml 0 ml BalanceBalance 1300 ml 0 ml Exam Free Text/Dictation Constitutional: alert, oriented; No distress Psych: anxiety; No confusion Head: normocephalic, atraumatic Eyes: nl conjunctiva, EOMI, PERRL; No icteric ENMT: nl external ears & nose, nl lips & teeth, mucosa pink and moist Neck: supple, non-tender; No jvd Respiratory: normal air movement; No congested cough, No labored breathing, No wheezing Cardiovascular: regular rate and rhythm; No edema Gastrointestinal: soft, distended (min), NT No firm, No rebound or guarding Genitourinary - Female: nl external genitalia Musculoskeletal: nl extremities to inspection; No joint tenderness Extremities: normal pulses; No calf tenderness, No edema, No tenderness Neurological: nl mental status, nl speech, nl strength Skin: nl turgor; No rash or lesions, No diaphoresis Lymph: nl lymph nodes Results Result Diagram: 04/03/18 0639 04/03/18 0639 CADENCE HUMMEL NP Apr 03, 2018 12:17
--- NOTE | 2018-04-03 13:38 | PN ---
Date/Time of Note Date/Time of Note DATE: 04/03/18 TIME: 13:35 Assessment/Plan VTE Prophylaxis Risk score (from Ns)>0 risk: 7 SCD applied (from Ns): Yes Pharmacological prophylaxis: other (scds) Lines/Catheters IV [facility] Type [facility]from [facility] Peripheral IV Urinary Cath still in place: No Assessment/Plan Hospital Course Summary Assessment and Plan: Assessment: Gallstone pancreatitis -MRCP negative for choledocholithiasis Elevated LFTs- trending down DVT - on eliquis at home (currently being held) _-US Lower extremity venous- 04/02/18- No sonographic evidence for deep venous thrombosis. HTN Pyrosis- on PPI Plan: Clear liquid advance as tolerated Monitor labs F/u with surgical recommendations Patient seen in collaboration with Dr. Lemon Subjective: Course reviewed with nursing staff Patient interviewed and examined All labs, imaging and other results reviewed The patient feels well, discussed MRCP results no plan for ERCP Pt to possibly have cholecystectomy later this week. No c/o abd pain , nausea or vomiting. magi clear liquid diet well. Constitutional: alert, oriented Psych: no complaints, nl mood/affect Head: normocephalic Eyes: nl conjunctiva ENMT: nl external ears & nose Neck: supple, non-tender Respiratory: clear to auscultation Cardiovascular: regular rate and rhythm, nl pulses Gastrointestinal: soft, bowel sounds, tender (upper abd)- improved Musculoskeletal: nl extremities to inspection Result Diagram: 04/03/18 0639 04/03/18 0639 Results 24hrs Laboratory Tests Test 04/03/18 06:39 White Blood Count 5.0 # Red Blood Count 4.16 L Hemoglobin 11.4 L Hematocrit 34.4 L Mean Corpuscular Volume 82.7 Mean Corpuscular Hemoglobin 27.4 L Mean Corpuscular Hemoglobin Concent 33.1 Red Cell Distribution Width 13.4 Platelet Count 211 Mean Platelet Volume 9.4 Immature Granulocytes % 0.400 Neutrophils % 49.0 Lymphocytes % 36.3 Monocytes % 10.3 Eosinophils % 3.2 Basophils % 0.8 Nucleated Red Blood Cells % 0.0 Immature Granulocytes # 0.020 Neutrophils # 2.5 Lymphocytes # 1.8 Monocytes # 0.5 Eosinophils # 0.2 Basophils # 0.0 Nucleated Red Blood Cells # 0.0 Sodium Level 140 Potassium Level 3.0 L Chloride Level 105 Carbon Dioxide Level 30 Anion Gap 5 Blood Urea Nitrogen 11 Creatinine 0.67 Est Glomerular Filtrat Rate mL/min > 60 Glucose Level 84 Calcium Level 8.9 Magnesium Level 1.8 Total Bilirubin 0.7 Direct Bilirubin 0.00 Indirect Bilirubin 0.7 Aspartate Amino Transf (AST/SGOT) 89 H Alanine Aminotransferase (ALT/SGPT) 178 H Alkaline Phosphatase 122 H Total Protein 6.2 Albumin 3.6 Globulin 2.60 Albumin/Globulin Ratio 1.38 Amylase Level 41 # Lipase 47 Exam/Review of Systems Exam Vitals Vital Signs Date Temp Pulse Resp B/P (MAP) Pulse Ox O2 O2 Flow FiO2 Time Delivery Rate 04/03/18 70 12:33 04/03/18 97.9 18 127/78 97 Room Air 11:20 (94) Intake and Output 04/02/18 04/02/18 04/03/18 1515:00 23:00 07:00 IntakeIntake Total 1300 ml 0 ml BalanceBalance 1300 ml 0 ml Results Results 24hrs Laboratory Tests Test 04/03/18 06:39 White Blood Count 5.0 # Red Blood Count 4.16 L Hemoglobin 11.4 L Hematocrit 34.4 L Mean Corpuscular Volume 82.7 Mean Corpuscular Hemoglobin 27.4 L Mean Corpuscular Hemoglobin Concent 33.1 Red Cell Distribution Width 13.4 Platelet Count 211 Mean Platelet Volume 9.4 Immature Granulocytes % 0.400 Neutrophils % 49.0 Lymphocytes % 36.3 Monocytes % 10.3 Eosinophils % 3.2 Basophils % 0.8 Nucleated Red Blood Cells % 0.0 Immature Granulocytes # 0.020 Neutrophils # 2.5 Lymphocytes # 1.8 Monocytes # 0.5 Eosinophils # 0.2 Basophils # 0.0 Nucleated Red Blood Cells # 0.0 Sodium Level 140 Potassium Level 3.0 L Chloride Level 105 Carbon Dioxide Level 30 Anion Gap 5 Blood Urea Nitrogen 11 Creatinine 0.67 Est Glomerular Filtrat Rate mL/min > 60 Glucose Level 84 Calcium Level 8.9 Magnesium Level 1.8 Total Bilirubin 0.7 Direct Bilirubin 0.00 Indirect Bilirubin 0.7 Aspartate Amino Transf (AST/SGOT) 89 H Alanine Aminotransferase (ALT/SGPT) 178 H Alkaline Phosphatase 122 H Total Protein 6.2 Albumin 3.6 Globulin 2.60 Albumin/Globulin Ratio 1.38 Amylase Level 41 # Lipase 47 Medications Medication Current Medications Sodium Chloride 1,000 ml @ 125 mls/hr Q8H IV Last administered on 04/03/18 07:25; Admin Dose 125 MLS/HR; Start 04/01/18 at 20:56 IV Flush (NS 3 ml) 3 ml PER PROTOCOL IV ; Start 04/01/18 at 21:00 Ondansetron HCl (Zofran Inj) 4 mg Q6H PRN IV NAUSEA/VOMITING; Start 04/01/18 at 21:00 Acetaminophen (Tylenol Supp) 650 mg Q6H PRN [place] .PAIN 1-3 OR TEMP; Start at 21:00 Morphine Sulfate (morphine) 2 mg Q4H PRN IV .PAIN 7-10; Start 04/01/18 at 21:00 Pantoprazole (Protonix Iv) 40 mg DAILY@06 IV Last administered on 04/03/18 05:50; Admin Dose 40 MG; Start 04/02/18 at 06:00 Hydralazine HCl (Apresoline) 10 mg Q4H PRN IV sbp >160; Start 04/01/18 at 21:00 Amlodipine Besylate (Norvasc) 10 mg DAILY PO Last administered on 04/03/18 08:57; Admin Dose 10 MG; Start 04/02/18 at 10:30 Gabapentin (Neurontin) 100 mg TID PO Last administered on 04/03/18 08:56; Admin Dose 100 MG; Start 04/02/18 at 13:00 Hydrochlorothiazide (Hydrochlorothiazide) 12.5 mg DAILY PO Last administered on 04/03/18 08:57; Admin Dose 12.5 MG; Start 04/02/18 at 10:30 Potassium Chloride (Klor-Con 20) 40 meq Q4H PO Last administered on 04/03/18 10:55; Admin Dose 40 MEQ; Start 04/03/18 at 10:00; Stop 04/03/18 at 14:01 Fluticasone Propionate (Flonase 0.05% Nasal) 1 spray BID NASAL Last administered on 04/03/18 10:56; Admin Dose 1 SPRAY; Start 04/03/18 at 11:00 FOREST REDDY Apr 03, 2018 13:38
--- NOTE | 2018-04-03 20:14 | PN ---
DATE: 04/03/2018 SUBJECTIVE: The patient's pain is better. She is actually quite hungry. OBJECTIVE: HEENT: Head is normocephalic. Pupils are equal and reactive. NECK: Supple. CHEST: Clear. ABDOMEN: Soft, minimal tenderness in epigastric area. Positive bowel sounds. EXTREMITIES: No lower extremity edema. VITAL SIGNS: Reviewed and stable. IMAGING: MRI: Small amount of sludge and questionable tiny gold stools without MR evidence of acute cholecystitis, no evidence of choledocholithiasis or biliary ductal dilatation. Lower extremity venous studies are negative for DVTs. ASSESSMENT AND PLAN: A 67-year-old female who had presented with epigastric abdominal pain and is managed as follows: 1. Gallstone pancreatitis: Improved. 2. Acute known gallstones. Plan for cholecystectomy hopefully on this admission after being off of Eliquis for 3 days. 3. Elevated liver function tests, rule out choledocholithiasis: MRCP is negative for that. 4. History of recurrent lower extremity deep venous thrombosis. I spoke with the patient's primary care doctor. He thinks that reason the patient's biological scientist is putting the patient back on anticoagulation is because the patient has had multiple episodes of deep venous thrombosis. The patient's biological scientist however is Dr. Arnold. I will try to reach him as well to see if patient needs to remain on anticoagulation. At this time however lower extremity Doppler showed no deep venous thrombosis. 4. History of gastroesophageal reflux disease. Continue on Protonix. DISPOSITION: Advance diet to clear liquid and to regular as tolerated. Surgery is planned possibility for Monday. I will keep patient n.p.o. past midnight Monday. Continue to trend LFTs and defer to GI regarding possible ERCP. Considering the stones were small, the patient may have choledocholithiasis that is not showing up on the MRCP. Dictated By: SUYAPA WHELAN MD BA/NTS Conf#: [id number] DID#: [id number] CC: REBECCA WISDOM MD; MICAELA MCCRAY MD;*EndCC* MTDD
[2018-04-04] VITALS (12 sets, daily range): BP systolic 109–134; BP diastolic 53–81; PULSE 61–74; RESP 18–19
[2018-04-04] MEDS: SOD CHLORIDE 0.9% 1,000 ML IV SCH ×3 (02:05→21:04)
[2018-04-04] MEDS: PANTOPRAZOLE (EC) 40 MG TAB PO SCH (06:00)
--- NOTE | 2018-04-04 07:17 | PN ---
Date/Time of Note Date/Time of Note DATE: 04/04/18 TIME: 07:17 Assessment/Plan VTE Prophylaxis Risk score (from Nsg)>0 risk: 8 SCD applied (from Nsg): Yes Pharmacological prophylaxis: apixaban Lines/Catheters IV Catheter Type (from Nrsg): Peripheral IV Urinary Cath still in place: No Assessment/Plan Hospital Course Objective: pain is better, wants to know what time her surgery will be done Physical exam General: Patient is laying in bed and answers questions appropriately Mentation: Patient is alert and oriented 4, Head: Normocephalic atraumatic Eyes: EOMI, pupils reactive to light Neck: Supple, nontender, midline Respiratory: Clear to auscultation bilaterally Cardiovascular: regular rate, no obvious murmurs Gastrointestinal: Epigastric and left upper quadrant tenderness to palpation, bowel sounds heard. Neurological: Moves all extremities spontaneously Skin: No new skin lesions Assessment and plan 1. Recurrent Pancreatitis, possibly gallstone -Bilirubin is normal, however AST and ALT are elevated, possible that it was a gallstone that did pass already, -CT of the abdomen and pelvis negative for acute process , ultrasound shows gallstones but no cholecystitis, no biliary ductal dilation -Patient was following with Dr. Hernandez in the outpatient setting and was planning on elective gallbladder removal prior to this hospitalization, await review and recommendations appreciated -f/u MRCP -Continue IV fluid -Continue N.p.o. /PPI -Pain control -spoke with sx, has to be off eliquis for at least 3 days 2. Abdominal pain -Secondary to above 3. Electrolyte derangement -Replete potassium as needed 4. Lower extremity DVT history -On Eliquis, however will hold for possible procedure or surgery tomorrow if GI or surgery decides to. -repeat LE dopplers 5. Hypertension -resume home meds 6. h/o GERD -Protonix Disposition -f/u MRCP, lipase levels and surgical recs Result Diagram: 04/04/18 0555 04/03/18 0639 Results 24hrs Laboratory Tests Test 04/04/18 05:55 White Blood Count 5.5 Red Blood Count 4.08 L Hemoglobin 10.9 L Hematocrit 33.4 L Mean Corpuscular Volume 81.9 L Mean Corpuscular Hemoglobin 26.7 L Mean Corpuscular Hemoglobin Concent 32.6 Red Cell Distribution Width 13.5 Platelet Count 205 Mean Platelet Volume 9.5 Immature Granulocytes % 0.200 Neutrophils % 55.2 Lymphocytes % 29.8 Monocytes % 11.5 H Eosinophils % 2.9 Basophils % 0.4 Nucleated Red Blood Cells % 0.0 Immature Granulocytes # 0.010 Neutrophils # 3.0 Lymphocytes # 1.6 Monocytes # 0.6 Eosinophils # 0.2 Basophils # 0.0 Nucleated Red Blood Cells # 0.0 Amylase Level 47 Lipase 50 Exam/Review of Systems Exam Vitals Vital Signs Date Temp Pulse Resp B/P (MAP) Pulse Ox O2 O2 Flow FiO2 Time Delivery Rate 04/04/18 65 04:00 04/04/18 97.5 18 112/65 97 Room Air 03:43 (81) Intake and Output 04/03/18 04/03/18 04/04/18 1515:00 23:00 07:00 IntakeIntake Total 1450 ml BalanceBalance 1450 ml Results Results 24hrs Laboratory Tests Test 04/04/18 05:55 White Blood Count 5.5 Red Blood Count 4.08 L Hemoglobin 10.9 L Hematocrit 33.4 L Mean Corpuscular Volume 81.9 L Mean Corpuscular Hemoglobin 26.7 L Mean Corpuscular Hemoglobin Concent 32.6 Red Cell Distribution Width 13.5 Platelet Count 205 Mean Platelet Volume 9.5 Immature Granulocytes % 0.200 Neutrophils % 55.2 Lymphocytes % 29.8 Monocytes % 11.5 H Eosinophils % 2.9 Basophils % 0.4 Nucleated Red Blood Cells % 0.0 Immature Granulocytes # 0.010 Neutrophils # 3.0 Lymphocytes # 1.6 Monocytes # 0.6 Eosinophils # 0.2 Basophils # 0.0 Nucleated Red Blood Cells # 0.0 Amylase Level 47 Lipase 50 Medications Medication Current Medications Sodium Chloride 1,000 ml @ 125 mls/hr Q8H IV Last administered on 04/04/18at 02:05; Admin Dose 125 MLS/HR; Start 04/01/18 at 20:56 IV Flush (NS 3 ml) 3 ml PER PROTOCOL IV ; Start 04/01/18 at 21:00 Ondansetron HCl (Zofran Inj) 4 mg Q6H PRN IV NAUSEA/VOMITING; Start 04/01/18 at 21:00 Acetaminophen (Tylenol Supp) 650 mg Q6H PRN ID .PAIN 1-3 OR TEMP; Start 04/01/18 at 21:00 Hydralazine HCl (Apresoline) 10 mg Q4H PRN IV sbp >160; Start 04/01/18 at 21:00 Amlodipine Besylate (Norvasc) 10 mg DAILY PO Last administered on 04/03/18 08:57; Admin Dose 10 MG; Start 04/02/18 at 10:30 Gabapentin (Neurontin) 100 mg TID PO Last administered on 04/03/18 21:06; Admin Dose 100 MG; Start 04/02/18 at 13:00 Hydrochlorothiazide (Hydrochlorothiazide) 12.5 mg DAILY PO Last administered on 04/03/18 08:57; Admin Dose 12.5 MG; Start 04/02/18 at 10:30 Fluticasone Propionate (Flonase 0.05% Nasal) 1 spray BID NASAL Last administered on 04/03/18 21:06; Admin Dose 1 SPRAY; Start 04/03/18 at 11:00 Pantoprazole (Protonix Tab) 40 mg DAILY@06 PO Last administered on 04/04/18at 06:00; Admin Dose 40 MG; Start 04/04/18 at 06:00 Morphine Sulfate (morphine) 6 mg Q4H PRN PO PAIN 7-10; Start 04/03/18 at 17:00 SUYAPA WHELAN Apr 04, 2018 07:17
[2018-04-04] MEDS: GABAPENTIN 100 MG CAP PO SCH ×3 (08:46→21:02)
[2018-04-04] MEDS: FLUTICASONE 0.05% 16 GM NAS SPRAY NASAL SCH ×2 (08:46→21:03)
[2018-04-04] MEDS: HYDROCHLOROTHIAZIDE 12.5 MG CAP PO SCH (08:47)
[2018-04-04] MEDS: AMLODIPINE 10 MG TAB PO SCH (08:47)
--- NOTE | 2018-04-04 09:51 | PN ---
Date/Time of Note Date/Time of Note DATE: 04/04/18 TIME: 09:49 Assessment/Plan Lines/Catheters IV Catheter Type (from [facility]): Peripheral IV Waters in Place (from Nrs): No Assessment/Plan Chief Complaint/Hosp Course 1. GS pancreatitis: resolved 2. Cholelithiasis no evidence of cholecystitis -eventual sx later this week as pt was on eliquis (currently on hold) -diet as magi (low fat low cholesterol) 3. transaminitis: improving -as jarred 4. Abd pain: resolved, now with bloating -cruz mgt 5.lower extr dvt hx. on eliquis at home -hold eliquis as above -ok for heparin > per med team 6. HTN -nutrition and medication optimization -encourage diet and exercise 7. GERD -nutrition and lifestyle optimization -antacids Thank you. Patient seen and examined in collaboration with Dr. Ramon Hernandez. Subjective 24 Hr Interval Summary Feels well. No abdominal pain. Bloating. No fevers, chills, sob, congested cough, cp, palpitations, galeano, dizziness, n/v/d/dysuria. Exam/Review of Systems Vital Signs Vitals Vital Signs Date Temp Pulse Resp B/P (MAP) Pulse Ox O2 O2 Flow FiO2 Time Delivery Rate 04/04/18 70 08:33 04/04/18 98.1 18 115/53 98 07:21 (73) 04/04/18 Room Air 03:43 Intake and Output 04/03/18 04/03/18 04/04/18 1515:00 23:00 07:00 IntakeIntake Total 1450 ml BalanceBalance 1450 ml Exam Free Text/Dictation Constitutional: alert, oriented; No distress Psych: anxiety; No confusion Head: normocephalic, atraumatic Eyes: nl conjunctiva, EOMI, PERRL; No icteric ENMT: nl external ears & nose, nl lips & teeth, mucosa pink and moist Neck: supple, non-tender; No jvd Respiratory: normal air movement; No congested cough, No labored breathing, No wheezing Cardiovascular: regular rate and rhythm; No edema Gastrointestinal: soft, distended (min), NT No firm, No rebound or guarding Genitourinary - Female: nl external genitalia Musculoskeletal: nl extremities to inspection; No joint tenderness Extremities: normal pulses; No calf tenderness, No edema, No tenderness Neurological: nl mental status, nl speech, nl strength Skin: nl turgor; No rash or lesions, No diaphoresis Lymph: nl lymph nodes Results Result Diagram: 04/04/18 0555 04/04/18 0555 CADENCE HUMMEL NP Apr 04, 2018 09:51
--- NOTE | 2018-04-04 15:42 | PN ---
Date/Time of Note Date/Time of Note DATE: 04/04/18 TIME: 15:36 Assessment/Plan VTE Prophylaxis Risk score (from Ns)>0 risk: 8 SCD applied (from Ns): Yes Pharmacological prophylaxis: other (scds) Lines/Catheters IV Catheter Type (from Nrs): Peripheral IV Urinary Cath still in place: No Assessment/Plan Hospital Course Summary Assessment and Plan: Assessment: Gallstone pancreatitis -MRCP negative for choledocholithiasis Elevated LFTs- trending down- almost have normalized DVT - on eliquis at home (currently being held) _-US Lower extremity venous- 04/02/18- No sonographic evidence for deep venous thrombosis. HTN Pyrosis- on PPI Plan: Advance diet as tolerated Monitor labs F/u with surgical recommendations Start MiraLAX for constipation Patient seen in collaboration with Dr. Lemon/Amarjit Subjective: Course reviewed with nursing staff Patient interviewed and examined All labs, imaging and other results reviewed No over night events No c/o abd pain, nausea or vomiting Cholecystectomy to be done later this week. Pt does c/o some constipation, encourage ambulation nascimento tart MiraLax Constitutional: alert, oriented Psych: no complaints, nl mood/affect Head: normocephalic Eyes: nl conjunctiva ENMT: nl external ears & nose Neck: supple, non-tender Respiratory: clear to auscultation Cardiovascular: regular rate and rhythm, nl pulses Gastrointestinal: soft, bowel sounds, tender (upper abd)- improved Musculoskeletal: nl extremities to inspection Result Diagram: 04/04/18 0555 04/04/18 0555 Results 24hrs Laboratory Tests Test 04/04/18 05:55 White Blood Count 5.5 Red Blood Count 4.08 L Hemoglobin 10.9 L Hematocrit 33.4 L Mean Corpuscular Volume 81.9 L Mean Corpuscular Hemoglobin 26.7 L Mean Corpuscular Hemoglobin Concent 32.6 Red Cell Distribution Width 13.5 Platelet Count 205 Mean Platelet Volume 9.5 Immature Granulocytes % 0.200 Neutrophils % 55.2 Lymphocytes % 29.8 Monocytes % 11.5 H Eosinophils % 2.9 Basophils % 0.4 Nucleated Red Blood Cells % 0.0 Immature Granulocytes # 0.010 Neutrophils # 3.0 Lymphocytes # 1.6 Monocytes # 0.6 Eosinophils # 0.2 Basophils # 0.0 Nucleated Red Blood Cells # 0.0 Sodium Level 143 Potassium Level 3.5 Chloride Level 102 Carbon Dioxide Level 29 Anion Gap 12 # Blood Urea Nitrogen 9 Creatinine 0.66 Est Glomerular Filtrat Rate mL/min > 60 Glucose Level 104 Calcium Level 9.0 Total Bilirubin 0.6 Direct Bilirubin 0.00 Indirect Bilirubin 0.6 Aspartate Amino Transf (AST/SGOT) 42 Alanine Aminotransferase (ALT/SGPT) 123 H Alkaline Phosphatase 89 Total Protein 6.2 Albumin 3.4 Globulin 2.80 Albumin/Globulin Ratio 1.21 Amylase Level 47 Lipase 50 Exam/Review of Systems Exam Vitals Vital Signs Date Temp Pulse Resp B/P (MAP) Pulse Ox O2 O2 Flow FiO2 Time Delivery Rate 04/04/18 64 13:10 04/04/18 98.2 18 119/68 94 Room Air 11:39 (85) Intake and Output 04/03/18 04/03/18 04/04/18 1515:00 23:00 07:00 IntakeIntake Total 1450 ml BalanceBalance 1450 ml Results Results 24hrs Laboratory Tests Test 04/04/18 05:55 White Blood Count 5.5 Red Blood Count 4.08 L Hemoglobin 10.9 L Hematocrit 33.4 L Mean Corpuscular Volume 81.9 L Mean Corpuscular Hemoglobin 26.7 L Mean Corpuscular Hemoglobin Concent 32.6 Red Cell Distribution Width 13.5 Platelet Count 205 Mean Platelet Volume 9.5 Immature Granulocytes % 0.200 Neutrophils % 55.2 Lymphocytes % 29.8 Monocytes % 11.5 H Eosinophils % 2.9 Basophils % 0.4 Nucleated Red Blood Cells % 0.0 Immature Granulocytes # 0.010 Neutrophils # 3.0 Lymphocytes # 1.6 Monocytes # 0.6 Eosinophils # 0.2 Basophils # 0.0 Nucleated Red Blood Cells # 0.0 Sodium Level 143 Potassium Level 3.5 Chloride Level 102 Carbon Dioxide Level 29 Anion Gap 12 # Blood Urea Nitrogen 9 Creatinine 0.66 Est Glomerular Filtrat Rate mL/min > 60 Glucose Level 104 Calcium Level 9.0 Total Bilirubin 0.6 Direct Bilirubin 0.00 Indirect Bilirubin 0.6 Aspartate Amino Transf (AST/SGOT) 42 Alanine Aminotransferase (ALT/SGPT) 123 H Alkaline Phosphatase 89 Total Protein 6.2 Albumin 3.4 Globulin 2.80 Albumin/Globulin Ratio 1.21 Amylase Level 47 Lipase 50 Medications Medication Current Medications Sodium Chloride 1,000 ml @ 125 mls/hr Q8H IV Last administered on 04/04/18 1 3:08; Admin Dose 125 MLS/HR; Start 04/01/18 at 20:56 IV Flush (NS 3 ml) 3 ml PER PROTOCOL IV ; Start 04/01/18 at 21:00 Ondansetron HCl (Zofran Inj) 4 mg Q6H PRN IV NAUSEA/VOMITING; Start 04/01/18 at 21:00 Acetaminophen (Tylenol Supp) 650 mg Q6H PRN [place] .PAIN 1-3 OR TEMP; Start 04/01/18 at 21:00 Hydralazine HCl (Apresoline) 10 mg Q4H PRN IV sbp >160; Start 04/01/18 at 21:00 Amlodipine Besylate (Norvasc) 10 mg DAILY PO Last administered on 04/04/18 08:47; Admin Dose 10 MG; Start 04/02/18 at 10:30 Gabapentin (Neurontin) 100 mg TID PO Last administered on 04/04/18 13:00; Admin Dose 100 MG; Start 04/02/18 at 13:00 Hydrochlorothiazide (Hydrochlorothiazide) 12.5 mg DAILY PO Last administered on 04/04/18 08:47; Admin Dose 12.5 MG; Start 04/02/18 at 10:30 Fluticasone Propionate (Flonase 0.05% Nasal) 1 spray BID NASAL Last administered on 04/04/18 08:46; Admin Dose 1 SPRAY; Start 04/03/18 at 11:00 Pantoprazole (Protonix Tab) 40 mg DAILY@06 PO Last administered on 04/04/18 06:00; Admin Dose 40 MG; Start 04/04/18 at 06:00 Morphine Sulfate (morphine) 6 mg Q4H PRN PO PAIN 7-10; Start 04/03/18 at 17:00 FOREST REDDY Apr 04, 2018 15:42
[2018-04-04] MEDS: POLYETHYLENE GLYCOL 17 GM PACKET PO SCH (16:19)
[2018-04-05] VITALS (27 sets, daily range): BP systolic 106–140; BP diastolic 58–74; PULSE 58–100; RESP 16–26
[2018-04-05] MEDS: SOD CHLORIDE 0.9% 1,000 ML IV SCH ×3 (04:32→22:36)
[2018-04-05] MEDS: PANTOPRAZOLE (EC) 40 MG TAB PO SCH (05:30)
[2018-04-05] MEDS ORDERED: DESFLURANE 15 MIN ONE (07:00)
[2018-04-05] MEDS ORDERED: CEFAZOLIN 1 GM INJ ONE (07:00)
[2018-04-05] MEDS ORDERED: SUGAMMADEX SODIUM 200 MG/2 ML VIAL IV ONE (07:00)
[2018-04-05] MEDS ORDERED: DEXAMETHASONE 4 MG/ML 5 ML INJ ONE (07:00)
[2018-04-05] MEDS: HYDROCHLOROTHIAZIDE 12.5 MG CAP PO SCH (08:08)
[2018-04-05] MEDS: FLUTICASONE 0.05% 16 GM NAS SPRAY NASAL SCH ×2 (08:08→21:00)
[2018-04-05] MEDS: POLYETHYLENE GLYCOL 17 GM PACKET PO SCH (08:09)
[2018-04-05] MEDS: GABAPENTIN 100 MG CAP PO SCH ×3 (08:09→21:00)
[2018-04-05] MEDS: AMLODIPINE 10 MG TAB PO SCH (08:09)
--- NOTE | 2018-04-05 10:26 | PN ---
Date/Time of Note Date/Time of Note DATE: 04/05/18 TIME: 10:23 Assessment/Plan Lines/Catheters IV Catheter Type (from Nrs): Peripheral IV Waters in Place (from Nrs): No Assessment/Plan Chief Complaint/Hosp Course 1. GS pancreatitis: resolved 2. Cholelithiasis no evidence of cholecystitis -OR today -N.p.o. 3. transaminitis: improving -as jarred 4. Abd pain: resolved, now with bloating -cruz mgt 5.lower extr dvt hx. on eliquis at home -hold eliquis as above -ok for heparin > per med team 6. HTN -nutrition and medication optimization -encourage diet and exercise 7. GERD -nutrition and lifestyle optimization -antacids Thank you. Patient seen and examined in collaboration with Dr. Ramon Hernandez. Subjective 24 Hr Interval Summary Feels well. No acute abdominal pain. No fevers, chills, sob, congested cough, cp, palpitations, galeano, dizziness, nausea, vomiting, diarrhea, dysuria. Exam/Review of Systems Vital Signs Vitals Vital Signs Date Temp Pulse Resp B/P (MAP) Pulse Ox O2 O2 Flow FiO2 Time Delivery Rate 04/05/18 68 08:16 04/05/18 97.8 20 118/68 96 Room Air 07:12 (85) Intake and Output 04/04/18 04/04/18 04/05/18 1515:00 23:00 07:00 IntakeIntake Total 600 ml 400 ml BalanceBalance 600 ml 400 ml Exam Free Text/Dictation Constitutional: alert, oriented; No distress Psych: anxiety; No confusion Head: normocephalic, atraumatic Eyes: nl conjunctiva, EOMI, PERRL; No icteric ENMT: nl external ears & nose, nl lips & teeth, mucosa pink and moist Neck: supple, non-tender; No jvd Respiratory: normal air movement; No congested cough, No labored breathing, No wheezing Cardiovascular: regular rate and rhythm; No edema Gastrointestinal: soft, distended (min), NT No firm, No rebound or guarding Genitourinary - Female: nl external genitalia Musculoskeletal: nl extremities to inspection; No joint tenderness Extremities: normal pulses; No calf tenderness, No edema, No tenderness Neurological: nl mental status, nl speech, nl strength Skin: nl turgor; No rash or lesions, No diaphoresis Lymph: nl lymph nodes Results Result Diagram: 04/05/18 0624 04/04/18 0555 CADENCE HUMMEL NP Apr 05, 2018 10:26
--- NOTE | 2018-04-05 12:44 | PN ---
Date/Time of Note Date/Time of Note DATE: 04/05/18 TIME: 12:43 Assessment/Plan VTE Prophylaxis Risk score (from Ns)>0 risk: 7 SCD applied (from Ns): Yes Pharmacological prophylaxis: other (scds) Lines/Catheters IV Catheter Type (from [facility]): Peripheral IV Urinary Cath still in place: No Assessment/Plan Hospital Course Summary Assessment and Plan: Assessment: Gallstone pancreatitis -MRCP negative for choledocholithiasis Elevated LFTs- greatly improved DVT - on eliquis at home (currently being held) -US Lower extremity venous- 04/02/18- No sonographic evidence for deep venous thrombosis. HTN Pyrosis- on PPI Plan: NPO for probable surgery today Monitor labs No further GI recommendations GI will sign off but will be available upon reconsult as needed Patient seen in collaboration with Dr. Lemon/Amarjit Subjective: Course reviewed with nursing staff Patient interviewed and examined All labs, imaging and other results reviewed Currently NPO- no over night events Pt denies n/v or abd pain currently Pt states she feels well overall. Constitutional: alert, oriented Psych: no complaints, nl mood/affect Head: normocephalic Eyes: nl conjunctiva ENMT: nl external ears & nose Neck: supple, non-tender Respiratory: clear to auscultation Cardiovascular: regular rate and rhythm, nl pulses Gastrointestinal: soft, bowel sounds, tender (upper abd)- improved Musculoskeletal: nl extremities to inspection Result Diagram: 04/05/18 0624 04/04/18 0555 Results 24hrs Laboratory Tests Test 04/05/18 06:24 White Blood Count 4.3 #L Red Blood Count 4.22 Hemoglobin 11.4 L Hematocrit 34.8 L Mean Corpuscular Volume 82.5 Mean Corpuscular Hemoglobin 27.0 L Mean Corpuscular Hemoglobin Concent 32.8 Red Cell Distribution Width 13.7 Platelet Count 208 Mean Platelet Volume 9.5 Immature Granulocytes % 0.200 Neutrophils % 47.5 Lymphocytes % 34.6 Monocytes % 12.4 H Eosinophils % 4.6 Basophils % 0.7 Nucleated Red Blood Cells % 0.0 Immature Granulocytes # 0.010 Neutrophils # 2.1 Lymphocytes # 1.5 Monocytes # 0.5 Eosinophils # 0.2 Basophils # 0.0 Nucleated Red Blood Cells # 0.0 Exam/Review of Systems Exam Vitals Vital Signs Date Temp Pulse Resp B/P (MAP) Pulse Ox O2 O2 Flow FiO2 Time Delivery Rate 04/05/18 63 12:23 04/05/18 97.9 16 120/61 99 Room Air 11:22 (80) Intake and Output 04/04/18 04/04/18 04/05/18 1515:00 23:00 07:00 IntakeIntake Total 600 ml 400 ml BalanceBalance 600 ml 400 ml Results Results 24hrs Laboratory Tests Test 04/05/18 06:24 White Blood Count 4.3 #L Red Blood Count 4.22 Hemoglobin 11.4 L Hematocrit 34.8 L Mean Corpuscular Volume 82.5 Mean Corpuscular Hemoglobin 27.0 L Mean Corpuscular Hemoglobin Concent 32.8 Red Cell Distribution Width 13.7 Platelet Count 208 Mean Platelet Volume 9.5 Immature Granulocytes % 0.200 Neutrophils % 47.5 Lymphocytes % 34.6 Monocytes % 12.4 H Eosinophils % 4.6 Basophils % 0.7 Nucleated Red Blood Cells % 0.0 Immature Granulocytes # 0.010 Neutrophils # 2.1 Lymphocytes # 1.5 Monocytes # 0.5 Eosinophils # 0.2 Basophils # 0.0 Nucleated Red Blood Cells # 0.0 Medications Medication Current Medications Sodium Chloride 1,000 ml @ 125 mls/hr Q8H IV Last administered on 04/05/18at 04:32; Admin Dose 125 MLS/HR; Start 04/01/18 at 20:56 IV Flush (NS 3 ml) 3 ml PER PROTOCOL IV ; Start 04/01/18 at 21:00 Ondansetron HCl (Zofran Inj) 4 mg Q6H PRN IV NAUSEA/VOMITING; Start 04/01/18 at 21:00 Acetaminophen (Tylenol Supp) 650 mg Q6H PRN [place] .PAIN 1-3 OR TEMP; Start 04/01/18 at 21:00 Hydralazine HCl (Apresoline) 10 mg Q4H PRN IV sbp >160; Start 04/01/18 at 21:00 Amlodipine Besylate (Norvasc) 10 mg DAILY PO Last administered on 04/05/18at 08:09; Admin Dose 10 MG; Start 04/02/18 at 10:30 Gabapentin (Neurontin) 100 mg TID PO Last administered on 04/05/18at 08:09; Admin Dose 100 MG; Start 04/02/18 at 13:00 Hydrochlorothiazide (Hydrochlorothiazide) 12.5 mg DAILY PO Last administered on 04/05/18 08:08; Admin Dose 12.5 MG; Start 04/02/18 at 10:30 Fluticasone Propionate (Flonase 0.05% Nasal) 1 spray BID NASAL Last administered on 04/05/18 08:08; Admin Dose 1 SPRAY; Start 04/03/18 at 11:00 Pantoprazole (Protonix Tab) 40 mg DAILY@06 PO Last administered on 04/05/18at 05:30; Admin Dose 40 MG; Start 04/04/18 at 06:00 Morphine Sulfate (morphine) 6 mg Q4H PRN PO PAIN 7-10; Start 04/03/18 at 17:00 Polyethylene Glycol (Miralax) 17 gm DAILY PO Last administered on 04/05/18 08:09; Admin Dose 17 GM; Start 04/04/18 at 16:00 FOREST REDDY Apr 05, 2018 12:44
[2018-04-05] MEDS ORDERED: BUPIVACAINE 0.5%/EPI (SDV) 30 ML INJ ONE (17:59)
[2018-04-05] MEDS ORDERED: IOHEXOL 300MG/ML 30 ML BTL ONE (17:59)
[2018-04-05] MEDS ORDERED: SUCCINYLCHOLINE CHLORIDE 100 MG/5 ML SYG IV ONE (18:01)
[2018-04-05] MEDS ORDERED: MIDAZOLAM 1 MG/ML 2 ML INJ ONE (18:01)
[2018-04-05] MEDS ORDERED: METOCLOPRAMIDE 10 MG INJ ONE (18:01)
[2018-04-05] MEDS ORDERED: LIDOCAINE 2% (SDV) 5 ML INJ ONE (18:01)
[2018-04-05] MEDS ORDERED: ROCURONIUM 50 MG INJ ONE (18:01)
[2018-04-05] MEDS ORDERED: FENTAnyl 50 MCG/ML VIAL ONE (18:01)
[2018-04-05] MEDS ORDERED: PROPOFOL 20 ML ONE (18:01)
[2018-04-05] MEDS ORDERED: LIDOCAINE 1% (MPF) 30 ML INJ ONE ×2 (18:04→18:33)
[2018-04-05] MEDS ORDERED: BUPIVACAINE 0.25% (MPF) 30 ML INJ ONE (18:06)
[2018-04-05] MEDS ORDERED: LIDOCAINE 1%/EPI (1:100,000) (MDV) 20 ML ONE (18:07)
--- NOTE | 2018-04-05 19:27 | PREAC ---
Date/Time of Note Date/Time of Note DATE: 04/05/18 TIME: 19:25 Anesthesia Eval and Record Evaluation Time Pre-Procedure Interview DATE: 04/05/18 TIME: 19:25 Age 67 Sex female NPO: 8 hrs Preoperative diagnosis acute pancreatitis Planned procedure lap sean Past Medical History Past Medical History: Includes Cardio: HTN Neuro: Peripheral neuropathy Hepatic: Other (chronic pancreatitis) GI: GERD Surgery & Anesthesia Issues No known issue Meds Anticoagulation: No Beta Mare within 24 hr: No Reason Beta Mare not given: Pt. not on B-Mare Active Scripts Apixaban* (Eliquis*) 5 Mg Tablet, 5 MG PO BID, #74 TAB take 2 tablets (10mg) twice daily for 7 days and then 1 tablet twice daily after that. Prov:SUYAPA WHELAN 01/11/18 Reported Medications Loratadine* (Loratadine*) 10 Mg Tablet, 10 MG PO DAILY, #30 TAB 01/08/18 Amlodipine Besylate* (Norvasc*) 10 Mg Tablet, 10 MG PO DAILY, TAB 01/08/18 Hydrochlorothiazide* (Hydrochlorothiazide*) 12.5 Mg Tablet, 12.5 MG PO DAILY, #30 TAB 01/08/18 Nitroglycerin* (Nitroglycerin* SL) 0.4 Mg Tab.subl, 0.4 MG SL Q5MIN PRN for JOELLE ST PAIN, BOTTLE 01/08/18 Omeprazole* (Omeprazole*) 40 Mg Capsule.dr, 40 MG PO DAILY, #30 CAP 01/08/18 Gabapentin* (Gabapentin*) 100 Mg Capsule, 100 MG PO TID, #90 CAP 01/08/18 Carisoprodol* (Carisoprodol*) 350 Mg Tablet, 350 MG PO Q HS PRN for MUSCLE SPASMS, TAB 01/08/18 Current Medications Sodium Chloride 1,000 ml @ 125 mls/hr Q8H IV Last administered on 04/05/18at 13:31; Admin Dose 125 MLS/HR; Start 04/01/18 at 20:56 IV Flush (NS 3 ml) 3 ml PER PROTOCOL IV ; Start 04/01/18 at 21:00 Ondansetron HCl (Zofran Inj) 4 mg Q6H PRN IV NAUSEA/VOMITING; Start 04/01/18 at 21:00 Acetaminophen (Tylenol Supp) 650 mg Q6H PRN ID .PAIN 1-3 OR TEMP; Start 04/01/18 at 21:00 Hydralazine HCl (Apresoline) 10 mg Q4H PRN IV sbp >160; Start 04/01/18 at 21:00 Amlodipine Besylate (Norvasc) 10 mg DAILY PO Last administered on 04/05/18 08:09; Admin Dose 10 MG; Start 04/02/18 at 10:30 Gabapentin (Neurontin) 100 mg TID PO Last administered on 04/05/18 13:30; Admin Dose 100 MG; Start 04/02/18 at 13:00 Hydrochlorothiazide (Hydrochlorothiazide) 12.5 mg DAILY PO Last administered on 04/05/18 08:08; Admin Dose 12.5 MG; Start 04/02/18 at 10:30 Fluticasone Propionate (Flonase 0.05% Nasal) 1 spray BID NASAL Last admini stered on 04/05/18 08:08; Admin Dose 1 SPRAY; Start 04/03/18 at 11:00 Pantoprazole (Protonix Tab) 40 mg DAILY@06 PO Last administered on 04/05/18 05:30; Admin Dose 40 MG; Start 04/04/18 at 06:00 Morphine Sulfate (morphine) 6 mg Q4H PRN PO PAIN 7-10; Start 04/03/18 at 17:00 Polyethylene Glycol (Miralax) 17 gm DAILY PO Last administered on 04/05/18 08:09; Admin Dose 17 GM; Start 04/04/18 at 16:00 Meds reviewed: Yes Allergies Coded Allergies: No Known Allergy (Unverified , 01/08/18) Allergies Reviewed: Yes Labs/Studies Labs Reviewed: Reviewed by anesthesiologist Result Diagram: 04/05/18 0624 04/04/18 0555 Laboratory Tests 04/05/18 06:24 test: Negative Studies: ECG Pre-procedure Exam Last vitals Vital Signs Date Temp Pulse Resp B/P (MAP) Pulse Ox O2 O2 Flow FiO2 Time Delivery Rate 04/05/18 63 16:08 04/05/18 97.5 20 131/64 99 Room Air 15:05 (86) Airway: Adequate mouth opening, Adequate thyromental dist Mallampati: Mallampati III Teeth: Normal Lung: Normal Heart: Normal ASA Physical Status ASA physical status: 3 Emergency: E Planned Anesthetic General/MAC: ETT Planned Pain Management Single shot nerve block, Parenteral pain med, Local by surgeon Pre-operative Attestations Prior to commencing anesthesia and surgery, the patient was re-evaluated, there was verification of: *The patient's identity *The results of appropriate recent lab work and preoperative vital signs *The above evaluation not changing prior to induction *Anesthetic plan, risk benefits, alternative and complications discussed with patient/family; questions answered; patient/family understands, accepts and wishes to proceed. CYNDI SALDAÑA MD Apr 05, 2018 19:27
[2018-04-05] MEDS ORDERED: LABETALOL HCL 20MG INJ IV PRN (19:30)
[2018-04-05] MEDS ORDERED: LEVALBUTEROL (NEB) 1.25 MG/0.5 ML AMP HHN PRN (19:30)
[2018-04-05] MEDS ORDERED: MEPERIDINE 25 MG INJ IV PRN (19:30)
[2018-04-05] MEDS ORDERED: ONDANSETRON 4 MG INJ IV PRN (19:30)
[2018-04-05] MEDS ORDERED: FENTAnyl 50 MCG/ML VIAL IV PRN ×2 (19:30)
[2018-04-05] MEDS ORDERED: DIPHENHYDRAMINE 50 MG INJ IV PRN (19:30)
[2018-04-05] MEDS ORDERED: hydrALAzine 20 MG INJ IV PRN (19:30)
[2018-04-05] MEDS ORDERED: KETOROLAC 30 MG INJ IV PRN (19:30)
[2018-04-05] MEDS ORDERED: HYDROmorphONE 1 MG/5 ML IV SYRINGE IV PRN ×3 (19:30)
[2018-04-05] MEDS ORDERED: ROPIVACAINE 0.5 % 30 ML VIAL ONE (20:29)
--- NOTE | 2018-04-05 21:05 | OPR ---
Date/Time of Note Date/Time of Note DATE: 04/05/18 TIME: 21:05 Operative Report Free Text/Dictation Preoperative Diagnosis: Gallstone pancreatitis Cholelithiasis Abnormal LFTs Postoperative Diagnosis: Gallstone pancreatitis Cholelithiasis Abnormal LFTs Abnormal liver color Operation(s) Performed: 1. 3 port laparoscopic cholecystectomy 2. Laparoscopic liver wedge resection biopsy 3. Local anesthetic [place], [id number] 4. Fluorescence indiocarmine green cholangiography Surgeon: Rebecca Wisdom MD Electronics Engineering Professor: None Anesthesia: general, local, & regional Anesthesiologist: Angel Luis Jeffers MD Estimated Blood Loss: Less than 5 ml's Specimens: Gallbladder Liver Tubes/Drains: None Complications: None Pt Condition Post Procedure: stable Disposition: PACU Indications: 67-year-old female with gallstones, pancreatitis and abdominal pain here for cholecystectomy. Pancreatitis has resolved. LFTs are improving. She has been off Eliquis for several days. Risks include but are not limited to bleeding, infection, abscess, seroma, damage to intestines, damage to the liver, damage to biliary tree, hernia formation, chronic pain, biloma, need for reoperations or further surgeries, AL, stroke, PE, DVT, pneumonia, organ failures, or even . Procedure Description: Patient was brought and placed supine on the operating table SCDs were placed, preoperative antibiotics were administered, all pressure points were well- padded, and after induction of anesthesia patient was prepped and draped in usual sterile fashion and timeout was performed. Incision was made in the supr aumbilical region, Veress was safely inserted, and after a negative SIP test, abdomen was insufflated to 15mmHg. Veress was removed and 5mm port was safely inserted. Laparoscopy was performed with a 5 mm 30 scope. No injuries were identified. The liver looks somewhat abnormal color. Gallbladder is without evidence of infection. 12 mm port is placed in subxiphoid under direct v isualization followed by another 5 mm port in the right upper quadrant. All port sites were injected with quarter percent Marcaine with epi prior to any incisions. Patient was placed in reverse Trendelenburg and right side up on gallbladder was retracted superolaterally. Using electrocautery and blunt dissection I was able to identify the cystic artery and cystic duct. The duct tapered into the gallbladder. Full critical angle view was identified. ICG fluorescence cholangiography was performed. Liver lights up nicely followed by common hepatic duct common bile duct and cystic duct. Gallbladder and the bowel also light up. Both structures were clipped twice proximally and once distally and transected. The gallbladder was taken off the liver with electrocautery. Hemostasis was obtained. Gallbladder was placed in an Endo Catch bag and removed through the subxiphoid port site. There was complete hemostasis. Due to the abnormality of the liver decision was made to perform liver wedge resection which was done with electrocautery and scissor with complete hemostasis right after. The specimen was sent to pathology for further yonis luation. 12 mm made port site fascia was closed with Endo Close of an 0 Vicryl in a [id number] manner. Ports and CO2 were removed under direct visualization. Next complete hemostasis. Wounds were thoroughly irrigated skin was closed with 4-0 Monocryl in subcuticular fashion. Dermabond was applied. Patient was extubated and transferred to recovery room in stable condition and all counts were correct and the end of the operation 2. Bilateral TAP was performed by the anesthesia at the end of the operation. REBECCA WISDOM MD Apr 05, 2018 21:05
[2018-04-05] MEDS: morphine LIQ (10 MG/5 ML) CUP PO PRN (22:46)
--- NOTE | 2018-04-05 23:44 | PAC ---
Date/Time of Note Date/Time of Note DATE: 04/05/18 TIME: 23:44 Post-Anesthesia Notes Post-Anesthesia Note Last documented vital signs Vital Signs Date Temp Pulse Resp B/P (MAP) Pulse Ox O2 O2 Flow FiO2 Time Delivery Rate 04/05/18 97.6 81 20 123/63 92 Room Air 22:34 (83) Activity: WNL Respiratory function: WNL Cardiovascular function: WNL Mental status: Baseline Pain reasonably controlled: Yes Hydration appropriate: Yes Nausea/Vomiting absent: Yes CYNDI SALDAÑA MD Apr 05, 2018 23:44
[2018-04-06] VITALS (8 sets, daily range): BP systolic 122–127; BP diastolic 60–74; PULSE 74–83; RESP 17–20
--- NOTE | 2018-04-06 00:34 | CONS ---
Assessment/Plan Assessment/Plan Hospital Course (Demo Recall) 1. GS pancreatitis -Pain control -Supportive -ivf -Lap sean after resolution 2. Cholelithiasis no evidence of cholecystitis -eventual sx later this week as pt was on eliquis (currently on hold) -ok for diet- clears and advance as magi 3. Transaminitis -Moderate -as jarred 4. Abd pain -cruz mgt 5. Lower extr dvt hx on eliquis at home -hold eliquis as above -ok for heparin > per med team 6. HTN -nutrition and medication optimization -encourage diet and exercise 7. GERD -nutrition and lifestyle optimization -antacids Thank you very much for consulting me in this patient's care, Late entry 04/02 Consultation Date/Type/Reason Admit Date/Time Date of Consultation: Apr 02, 2018 Type of Consult General surgical Reason for Consultation Abdominal pain Gallstones Pancreatitis Requesting Provider: MICAELA MCCRAY Date/Time of Note DATE: 04/02/18 TIME: 22:24 Hx of Present Illness Pushpa Jeffrey is a 67-year-old female with multiple comorbidities who represents with pancreatitis secondary to gallstones. Patient reports pro gressive upper abdominal pain similar to her previous pancreatitis attacks. Currently an MRCP is pending. She denies any nausea vomiting. No fevers or chills. No cough. No seizure. No blood per mouth or rectum. No dysuria. No abnormal discharge. Surgery consult is obtained for further evaluation and treatment. 12 point review of systems negative unless otherwise addressed in chart Past Medical History Hypertension GERD Left lower extremity DVT diagnosed Cholelithiasis Transaminitis Acute pancreatitis Neuropathy Hypokalemia Home Meds Active Scripts Apixaban* (Eliquis*) 5 Mg Tablet, 5 MG PO BID, #74 TAB take 2 tablets (10mg) twice daily for 7 days and then 1 tablet twice daily after that. Prov:CLEOPATRASUYAPA 01/11/18 Reported Medications Loratadine* (Loratadine*) 10 Mg Tablet, 10 MG PO DAILY, #30 TAB 01/08/18 Amlodipine Besylate* (Norvasc*) 10 Mg Tablet, 10 MG PO DAILY, TAB 01/08/18 Hydrochlorothiazide* (Hydrochlorothiazide*) 12.5 Mg Tablet, 12.5 MG PO DAILY, #3 0 TAB 01/08/18 Nitroglycerin* (Nitroglycerin* SL) 0.4 Mg Tab.subl, 0.4 MG SL Q5MIN PRN for CHEST PAIN, BOTTLE 01/08/18 Omeprazole* (Omeprazole*) 40 Mg Capsule.dr, 40 MG PO DAILY, #30 CAP 01/08/18 Gabapentin* (Gabapentin*) 100 Mg Capsule, 100 MG PO TID, #90 CAP 01/08/18 Carisoprodol* (Carisoprodol*) 350 Mg Tablet, 350 MG PO Q HS PRN for MUSCLE SPASMS, TAB 01/08/18 Medications Current Medications Sodium Chloride 1,000 ml @ 125 mls/hr Q8H IV Last administered on 04/05/18 13:31; Admin Dose 125 MLS/HR; Start 04/01/18 at 20:56 IV Flush (NS 3 ml) 3 ml PER PROTOCOL IV ; Start 04/01/18 at 21:00 Ondansetron HCl (Zofran Inj) 4 mg Q6H PRN IV NAUSEA/VOMITING; Start 04/01/18 at 21:00 Acetaminophen (Tylenol Supp) 650 mg Q6H PRN HI .PAIN 1-3 OR TEMP; Start 04/01/18 at 21:00 Hydralazine HCl (Apresoline) 10 mg Q4H PRN IV sbp >160; Start 04/01/18 at 21:00 Amlodipine Besylate (Norvasc) 10 mg DAILY PO Last administered on 04/05/18 08:09; Admin Dose 10 MG; Start 04/02/18 at 10:30 Gabapentin (Neurontin) 100 mg TID PO Last administered on 04/05/18 13:30; Admin Dose 100 MG; Start 04/02/18 at 13:00 Hydrochlorothiazide (Hydrochlorothiazide) 12.5 mg DAILY PO Last administered on 04/05/18 08:08; Admin Dose 12.5 MG; Start 04/02/18 at 10:30 Fluticasone Propionate (Flonase 0.05% Nasal) 1 spray BID NASAL Last administered on 04/05/18 08:08; Admin Dose 1 SPRAY; Start 04/03/18 at 11:00 Pantoprazole (Protonix Tab) 40 mg DAILY@06 PO Last administered on 04/05/18 05 :30; Admin Dose 40 MG; Start 04/04/18 at 06:00 Morphine Sulfate (morphine) 6 mg Q4H PRN PO PAIN 7-10 Last administered on 04/05/18at 22:46; Admin Dose 6 MG; Start 04/03/18 at 17:00 Polyethylene Glycol (Miralax) 17 gm DAILY PO Last administered on 04/05/18at 08:09; Admin Dose 17 GM; Start 04/04/18 at 16:00 Hydromorphone HCl (Dilaudid) 0.2 mg PACU PRN IV MILD PAIN 1-3; Start 04/05/18 at 19:30; Stop 04/06/18 at 03:00 Hydromorphone HCl (Dilaudid) 0.4 mg PACU PRN IV MOD PAIN 4-6; Start 04/05/18 at 19:30; Stop 04/06/18 at 03:00 Hydromorphone HCl (Dilaudid) 0.6 mg PACU PRN IV SEVERE PAIN 7-10; Start 04/05/18 at 19:30; Stop 04/06/18 at 03:00 Fentanyl (Sublimaze) 25 mcg PACU ORDER PRN IV MILD PAIN 1-3; Start 04/05/18 at 19:30; Stop 04/06/18 at 03:00 Fentanyl (Sublimaze) 50 mcg PACU ORDER PRN IV MOD PAIN 4-6; Start 04/05/18 at 19:30; Stop 04/06/18 at 03:00 Ketorolac Tromethamine (Toradol) 30 mg PACU ORDER PRN IV FOR PAIN AFTER IV NARCOTIC MED; Start 04/05/18 at 19:30; Stop 04/06/18 at 03:00 Ondansetron HCl (Zofran Inj) 4 mg PACU ORDER PRN IV NAUSEA/VOMITING Last administered on 04/05/18at 21:29; Admin Dose 4 MG; Start 04/05/18 at 19:30; Stop 04/06/18 at 03:00 Labetalol HCl (Labetalol) 5 mg PACU ORDER PRN IV HIGH BLOOD PRESSURE; Start 04/05/18 at 19:30; Stop 04/06/18 at 03:00 Hydralazine HCl (Apresoline) 5 mg PACU ORDER PRN IV HIGH BLOOD PRESSURE; Start 04/05/18 at 19:30; Stop 04/06/18 at 03:00 Levalbuterol (Xopenex Neb) 1.25 mg PACU ORDER PRN HHN .WHEEZING; Start 04/05/18 at 19:30; Stop 04/06/18 at 03:00 Meperidine HCl (Demerol) 25 mg PACU ORDER PRN IV .RIGORS Last administered on 04/05/18at 21:29; Admin Dose 25 MG; Start 04/05/18 at 19:30; Stop 04/06/18 at 03:00 Diphenhydramine HCl (Benadryl) 25 mg PACU ORDER PRN IV .PRURITUS; Start 04/05/18 at 19:30; Stop 04/06/18 at 03:00 Allergies: Coded Allergies: No Known Allergy (Unverified , 01/08/18) Past Surgical History Vaginal hysterectomy Right knee Past Surgical Hx: other Family History Significant Family History: no pertinent family hx Social History Alcohol Use: none Smoking Status: Never smoker Drug Use: none Exam/Review of Systems Exam Vitals Vital Signs Date Temp Pulse Resp B/P (MAP) Pulse Ox O2 O2 Flow FiO2 Time Delivery Rate 04/05/18 98.1 85 18 124/64 97 23:53 (84) 04/05/18 Room Air 22:34 Intake and Output 04/05/18 04/05/18 04/06/18 1515:00 23:00 07:00 IntakeIntake Total 1980 ml OutputOutput Total 10 ml BalanceBalance 1970 ml Exam Constitutional: alert, oriented; No distress Psych: anxiety; No confusion Head: normocephalic, atraumatic Eyes: nl conjunctiva, EOMI, PERRL; No icteric ENMT: nl external ears & nose, nl lips & teeth, mucosa pink and moist Neck: supple, non-tender; No jvd Respiratory: normal air movement; No congested cough, No labored breathing, No wheezing Cardiovascular: regular rate and rhythm; No edema Gastrointestinal: soft, distended (min), NT No firm, No rebound or guarding Genitourinary - Female: nl external genitalia Musculoskeletal: nl extremities to inspection; No joint tenderness Extremities: normal pulses; No calf tenderness, No edema, No tenderness Neurological: nl mental status, nl speech, nl strength Skin: nl turgor; No rash or lesions, No diaphoresis Lymph: nl lymph nodes Results Result Diagram: 04/05/18 0624 04/04/18 0555 Results 24hrs Laboratory Tests Test 04/05/18 06:24 White Blood Count 4.3 #L Red Blood Count 4.22 Hemoglobin 11.4 L Hematocrit 34.8 L Mean Corpuscular Volume 82.5 Mean Corpuscular Hemoglobin 27.0 L Mean Corpuscular Hemoglobin Concent 32.8 Red Cell Distribution Width 13.7 Platelet Count 208 Mean Platelet Volume 9.5 Immature Granulocytes % 0.200 Neutrophils % 47.5 Lymphocytes % 34.6 Monocytes % 12.4 H Eosinophils % 4.6 Basophils % 0.7 Nucleated Red Blood Cells % 0.0 Immature Granulocytes # 0.010 Neutrophils # 2.1 Lymphocytes # 1.5 Monocytes # 0.5 Eosinophils # 0.2 Basophils # 0.0 Nucleated Red Blood Cells # 0.0 Medications Medication Current Medications Sodium Chloride 1,000 ml @ 125 mls/hr Q8H IV Last administered on 04/05/18at 13:31; Admin Dose 125 MLS/HR; Start 04/01/18 at 20:56 IV Flush (NS 3 ml) 3 ml PER PROTOCOL IV ; Start 04/01/18 at 21:00 Ondansetron HCl (Zofran Inj) 4 mg Q6H PRN IV NAUSEA/VOMITING; Start 04/01/18 at 21:00 Acetaminophen (Tylenol Supp) 650 mg Q6H PRN HI .PAIN 1-3 OR TEMP; Start 04/01/18 at 21:00 Hydralazine HCl (Apresoline) 10 mg Q4H PRN IV sbp >160; Start 04/01/18 at 21:00 Amlodipine Besylate (Norvasc) 10 mg DAILY PO Last administered on 04/05/18at 08:09; Admin Dose 10 MG; Start 04/02/18 at 10:30 Gabapentin (Neurontin) 100 mg TID PO Last administered on 04/05/18at 13:30; Admin Dose 100 MG; Start 04/02/18 at 13:00 Hydrochlorothiazide (Hydrochlorothiazide) 12.5 mg DAILY PO Last administered on 04/05/18 08:08; Admin Dose 12.5 MG; Start 04/02/18 at 10:30 Fluticasone Propionate (Flonase 0.05% Nasal) 1 spray BID NASAL Last administered on 04/05/18at 08:08; Admin Dose 1 SPRAY; Start 04/03/18 at 11:00 Pantoprazole (Protonix Tab) 40 mg DAILY@06 PO Last administered on 04/05/18at 05:30; Admin Dose 40 MG; Start 04/04/18 at 06:00 Morphine Sulfate (morphine) 6 mg Q4H PRN PO PAIN 7-10 Last administered on 04/05/18at 22:46; Admin Dose 6 MG; Start 04/03/18 at 17:00 Polyethylene Glycol (Miralax) 17 gm DAILY PO Last administered on 04/05/18at 08:09; Admin Dose 17 GM; Start 04/04/18 at 16:00 Hydromorphone HCl (Dilaudid) 0.2 mg PACU PRN IV MILD PAIN 1-3; Start 04/05/18 at 19:30; Stop 04/06/18 at 03:00 Hydromorphone HCl (Dilaudid) 0.4 mg PACU PRN IV MOD PAIN 4-6; Start 04/05/18 at 19:30; Stop 04/06/18 at 03:00 Hydromorphone HCl (Dilaudid) 0.6 mg PACU PRN IV SEVERE PAIN 7-10; Start 04/05/18 at 19:30; Stop 04/06/18 at 03:00 Fentanyl (Sublimaze) 25 mcg PACU ORDER PRN IV MILD PAIN 1-3; Start 04/05/18 at 19:30; Stop 04/06/18 at 03:00 Fentanyl (Sublimaze) 50 mcg PACU ORDER PRN IV MOD PAIN 4-6; Start 04/05/18 at 19:30; Stop 04/06/18 at 03:00 Ketorolac Tromethamine (Toradol) 30 mg PACU ORDER PRN IV FOR PAIN AFTER IV NARCOTIC MED; Start 04/05/18 at 19:30; Stop 04/06/18 at 03:00 Ondansetron HCl (Zofran Inj) 4 mg PACU ORDER PRN IV NAUSEA/VOMITING Last administered on 04/05/18at 21:29; Admin Dose 4 MG; Start 04/05/18 at 19:30; Stop 04/06/18 at 03:00 Labetalol HCl (Labetalol) 5 mg PACU ORDER PRN IV HIGH BLOOD PRESSURE; Start 04/05/18 at 19:30; Stop 04/06/18 at 03:00 Hydralazine HCl (Apresoline) 5 mg PACU ORDER PRN IV HIGH BLOOD PRESSURE; Start 04/05/18 at 19:30; Stop 04/06/18 at 03:00 Levalbuterol (Xopenex Neb) 1.25 mg PACU ORDER PRN HHN .WHEEZING; Start 04/05/18 at 19:30; Stop 04/06/18 at 03:00 Meperidine HCl (Demerol) 25 mg PACU ORDER PRN IV .RIGORS Last administered on 04/05/18at 21:29; Admin Dose 25 MG; Start 04/05/18 at 19:30; Stop 04/06/18 at 03:00 Diphenhydramine HCl (Benadryl) 25 mg PACU ORDER PRN IV .PRURITUS; Start 04/05/18 at 19:30; Stop 04/06/18 at 03:00 REBECCA WISDOM MD Apr 06, 2018 00:34
[2018-04-06] MEDS: SOD CHLORIDE 0.9% 1,000 ML IV SCH ×4 (03:30→20:12)
[2018-04-06] MEDS: PANTOPRAZOLE (EC) 40 MG TAB PO SCH (06:05)
[2018-04-06] MEDS: AMLODIPINE 10 MG TAB PO SCH (08:14)
[2018-04-06] MEDS: GABAPENTIN 100 MG CAP PO SCH ×3 (08:14→20:11)
[2018-04-06] MEDS: FLUTICASONE 0.05% 16 GM NAS SPRAY NASAL SCH ×2 (08:15→20:30)
[2018-04-06] MEDS: POLYETHYLENE GLYCOL 17 GM PACKET PO SCH (08:15)
[2018-04-06] MEDS: HYDROCHLOROTHIAZIDE 12.5 MG CAP PO SCH (08:16)
[2018-04-06] MEDS ORDERED: POTASSIUM CHLORIDE (SR) 20 MEQ TAB PO STA (08:52)
[2018-04-06] MEDS ORDERED: POTASSIUM CHLORIDE 100 ML IVPB ONE (09:00)
[2018-04-06] MEDS: POTASSIUM CHLORIDE 100 ML IVPB SCH ×2 (10:01→12:38)
--- NOTE | 2018-04-06 11:32 | PN ---
Date/Time of Note Date/Time of Note DATE: 04/06/18 TIME: 11:31 Assessment/Plan Lines/Catheters IV Catheter Type (from Nrs): Peripheral IV Waters in Place (from Nrs): No Assessment/Plan Chief Complaint/Hosp Course 1. GS pancreatitis: resolved 2. Cholelithiasis no evidence of cholecystitis; some nausea and vomiting -IS -ambulate -ice pack to abdominal wall -advance diet as tolerated -antiemetics prn 3. transaminitis: improving -as jarred 4. Abd pain: resolved, now with bloating -cruz mgt 5.lower extr dvt hx. on eliquis at home -hold eliquis as above -ok for heparin > per med team 6. HTN -nutrition and medication optimization -encourage diet and exercise 7. GERD -nutrition and lifestyle optimization -antacids 8. Hypokalemia -optimize lytes Thank you. Patient seen and examined in collaboration with Dr. Ramon Hernandez. Subjective 24 Hr Interval Summary Status post lap sean yesterday. Some nausea and vomiting. No fevers, chills, sob, congested cough, cp, palpitations, galeano, dizziness, diarrhea, dysuria. Exam/Review of Systems Vital Signs Vitals Vital Signs Date Temp Pulse Resp B/P (MAP) Pulse Ox O2 O2 Flow FiO2 Time Delivery Rate 04/06/18 98.1 79 20 127/62 94 Room Air 11:50 (83) Intake and Output 04/05/18 04/05/18 04/06/18 1515:00 23:00 07:00 IntakeIntake Total 1980 ml 1700 ml OutputOutput Total 10 ml BalanceBalance 1970 ml 1700 ml Exam Free Text/Dictation Constitutional: alert, oriented; No distress Psych: anxiety; No confusion Head: normocephalic, atraumatic Eyes: nl conjunctiva, EOMI, PERRL; No icteric ENMT: nl external ears & nose, nl lips & teeth, mucosa pink and moist Neck: supple, non-tender; No jvd Respiratory: normal air movement; No congested cough, No labored breathing, No wheezing Cardiovascular: regular rate and rhythm; No edema Gastrointestinal: soft, distended (min), NT, incision sites dry w/o drainage/discoloration/bruising No firm, No rebound or guarding Genitourinary - Female: nl external genitalia Musculoskeletal: nl extremities to inspection; No joint tenderness Extremities: normal pulses; No calf tenderness, No edema, No tenderness Neurological: nl mental status, nl speech, nl strength Skin: nl turgor; No rash or lesions, No diaphoresis Lymph: nl lymph nodes Results Result Diagram: 04/06/1861104/06/18611 CADENCE HUMMEL NP Apr 06, 2018 11:32
--- NOTE | 2018-04-06 12:06 | PN ---
Date/Time of Note Date/Time of Note DATE: 04/06/18 TIME: 11:57 Assessment/Plan VTE Prophylaxis Risk score (from Ns)>0 risk: 9 SCD applied (from Ns): Yes Pharmacological prophylaxis: LMWH Lines/Catheters IV Catheter Type (from Nrs): Peripheral IV Urinary Cath still in place: No Assessment/Plan Hospital Course Subjective : doing fairly well post op, mildly tolerating Clear liquid diet, doesn't want to advance diet just yet d/t mild gas and nasuea, orders are to advance as tolerated Physical exam General: Patient is laying in bed and answers questions appropriately Mentation: Patient is alert and oriented 4, Head: Normocephalic atraumatic Eyes: EOMI, pupils reactive to light Neck: Supple, nontender, midline Respiratory: Clear to auscultation bilaterally Cardiovascular: regular rate, no obvious murmurs Gastrointestinal: mildly distended, laparoscopic incisions covered with clean bandaids, hypoactive bs Neurological: Moves all extremities spontaneously Skin: No new skin lesions Assessment and plan 1. Recurrent Gallstone Pancreatitis: resolved 2. Cholelithiasis -s/p lap sean 04/05/18 -appreciate surgical input and mgt -continue routine postop 3. Transaminitis -had improved, but increased again postop, patient did have liver biopsy likely causing this -MRCP was negative for choledocholithiasis -trend levels, I expect improvement 4. Lower extremity DVT history -I have spoken with patient's OP PCP Dr Conner and her OP remedial reading teacher Dr Camacho, patient was being treated for DVT diagnosed roughly 09/30 -No evidence or documentation to show this was more than one -all physicians are ok to stop all forms of anticoagulation for now, if anything changes, PCP will adjust therapy as indicated 5. Hypertension -on home meds 6. h/o GERD -Protonix Disposition -patient is still symptomatic and lethargic from surgery, also transaminases elevated -possible d/c in am if improved without anticoagulation Result Diagram: 04/06/18 0612 04/06/18 0612 Results 24hrs Laboratory Tests Test 04/06/18 06:12 White Blood Count 9.3 # Red Blood Count 4.10 L Hemoglobin 11.0 L Hematocrit 33.4 L Mean Corpuscular Volume 81.5 L Mean Corpuscular Hemoglobin 26.8 L Mean Corpuscular Hemoglobin Concent 32.9 Red Cell Distribution Width 13.2 Platelet Count 210 Mean Platelet Volume 9.5 Immature Granulocytes % 0.300 Neutrophils % 87.3 H Lymphocytes % 8.0 L Monocytes % 4.2 Eosinophils % 0.0 Basophils % 0.2 Nucleated Red Blood Cells % 0.0 Immature Granulocytes # 0.030 Neutrophils # 8.1 H Lymphocytes # 0.7 L Monocytes # 0.4 Eosinophils # 0.0 Basophils # 0.0 Nucleated Red Blood Cells # 0.0 Sodium Level 140 Potassium Level 2.8 *L Chloride Level 99 Carbon Dioxide Level 30 Anion Gap 11 Blood Urea Nitrogen 8 Creatinine 0.55 Est Glomerular Filtrat Rate mL/min > 60 Glucose Level 125 Calcium Level 8.2 L Total Bilirubin 0.5 Direct Bilirubin 0.00 Indirect Bilirubin 0.5 Aspartate Amino Transf (AST/SGOT) 177 H Alanine Aminotransferase (ALT/SGPT) 177 H Alkaline Phosphatase 108 Total Protein 6.7 Albumin 3.8 Globulin 2.90 Albumin/Globulin Ratio 1.31 Exam/Review of Systems Exam Vitals Vital Signs Date Temp Pulse Resp B/P (MAP) Pulse Ox O2 O2 Flow FiO2 Time Delivery Rate 04/06/18 98.1 79 20 127/62 94 Room Air 11:50 (83) Intake and Output 04/05/18 04/05/18 04/06/18 1515:00 23:00 07:00 IntakeIntake Total 1980 ml 1700 ml OutputOutput Total 10 ml BalanceBalance 1970 ml 1700 ml Results Results 24hrs Laboratory Tests Test 04/06/18 06:12 White Blood Count 9.3 # Red Blood Count 4.10 L Hemoglobin 11.0 L Hematocrit 33.4 L Mean Corpuscular Volume 81.5 L Mean Corpuscular Hemoglobin 26.8 L Mean Corpuscular Hemoglobin Concent 32.9 Red Cell Distribution Width 13.2 Platelet Count 210 Mean Platelet Volume 9.5 Immature Granulocytes % 0.300 Neutrophils % 87.3 H Lymphocytes % 8.0 L Monocytes % 4.2 Eosinophils % 0.0 Basophils % 0.2 Nucleated Red Blood Cells % 0.0 Immature Granulocytes # 0.030 Neutrophils # 8.1 H Lymphocytes # 0.7 L Monocytes # 0.4 Eosinophils # 0.0 Basophils # 0.0 Nucleated Red Blood Cells # 0.0 Sodium Level 140 Potassium Level 2.8 *L Chloride Level 99 Carbon Dioxide Level 30 Anion Gap 11 Blood Urea Nitrogen 8 Creatinine 0.55 Est Glomerular Filtrat Rate mL/min > 60 Glucose Level 125 Calcium Level 8.2 L Total Bilirubin 0.5 Direct Bilirubin 0.00 Indirect Bilirubin 0.5 Aspartate Amino Transf (AST/SGOT) 177 H Alanine Aminotransferase (ALT/SGPT) 177 H Alkaline Phosphatase 108 Total Protein 6.7 Albumin 3.8 Globulin 2.90 Albumin/Globulin Ratio 1.31 Medications Medication Current Medications Sodium Chloride 1,000 ml @ 125 mls/hr Q8H IV Last administered on 04/06/18 03:30; Admin Dose 125 MLS/HR; Start 04/01/18 at 20:56 IV Flush (NS 3 ml) 3 ml PER PROTOCOL IV ; Start 04/01/18 at 21:00 Ondansetron HCl (Zofran Inj) 4 mg Q6H PRN IV NAUSEA/VOMITING Last administered on 04/06/18 08:48; Admin Dose 4 MG; Start 04/01/18 at 21:00 Acetaminophen (Tylenol Supp) 650 mg Q6H PRN IN .PAIN 1-3 OR TEMP; Start 04/01/18 at 21:00 Hydralazine HCl (Apresoline) 10 mg Q4H PRN IV sbp >160; Start 04/01/18 at 21:00 Amlodipine Besylate (Norvasc) 10 mg DAILY PO Last administered on 04/06/18 08 :14; Admin Dose 10 MG; Start 04/02/18 at 10:30 Gabapentin (Neurontin) 100 mg TID PO Last administered on 04/06/18 08:14; Admin Dose 100 MG; Start 04/02/18 at 13:00 Hydrochlorothiazide (Hydrochlorothiazide) 12.5 mg DAILY PO Last administered on 04/05/18 08:08; Admin Dose 12.5 MG; Start 04/02/18 at 10:30 Fluticasone Propionate (Flonase 0.05% Nasal) 1 spray BID NASAL Last administered on 04/06/18 08:15; Admin Dose 1 SPRAY; Start 04/03/18 at 11:00 Pantoprazole (Protonix Tab) 40 mg DAILY@06 PO Last administered on 04/06/18 06:05; Admin Dose 40 MG; Start 04/04/18 at 06:00 Morphine Sulfate (morphine) 6 mg Q4H PRN PO PAIN 7-10 Last administered on 04/05/18at 22:46; Admin Dose 6 MG; Start 04/03/18 at 17:00 Polyethylene Glycol (Miralax) 17 gm DAILY PO Last administered on 04/06/18at 08:15; Admin Dose 17 GM; Start 04/04/18 at 16:00 Potassium Chloride 100 ml @ 50 mls/hr Q2H IVPB Last administered on 04/06/18at 10:01; Admin Dose 50 MLS/HR; Start 04/06/18 at 09:00; Stop 04/06/18 at 12:59 SUYAPA WHELAN Apr 06, 2018 12:06
[2018-04-06] MEDS: morphine LIQ (10 MG/5 ML) CUP PO PRN (20:12)
[2018-04-07 02:26] VITALS: BP 132/69; PULSE 73; RESP 18
[2018-04-07] MEDS: SOD CHLORIDE 0.9% 1,000 ML IV SCH (05:10)
[2018-04-07] MEDS: PANTOPRAZOLE (EC) 40 MG TAB PO SCH (05:10)
[2018-04-07] MEDS: morphine LIQ (10 MG/5 ML) CUP PO PRN ×3 (05:13→14:17)
[2018-04-07 08:48] VITALS: BP 122/55; PULSE 74; RESP 17
[2018-04-07] MEDS: FLUTICASONE 0.05% 16 GM NAS SPRAY NASAL SCH (09:00)
[2018-04-07] MEDS: GABAPENTIN 100 MG CAP PO SCH ×2 (09:07→13:05)
[2018-04-07] MEDS: HYDROCHLOROTHIAZIDE 12.5 MG CAP PO SCH (09:07)
[2018-04-07] MEDS: POLYETHYLENE GLYCOL 17 GM PACKET PO SCH (09:07)
[2018-04-07] MEDS: AMLODIPINE 10 MG TAB PO SCH (09:07)
[2018-04-07 14:00] VITALS: BP 113/60; PULSE 78; RESP 17
[2018-04-07] MEDS ORDERED: POTASSIUM CHLORIDE (SR) 20 MEQ TAB PO STA (14:28)
--- NOTE | 2018-04-07 14:31 | PDOCDIS ---
Discharge Instructions DIAGNOSIS Discharge Diagnosis Gall bladder pancreatitis CONDITION [id number] Patient Condition: [id number] Stable FOLLOW UP/APPOINTMENTS Follow-up Plan Make an appointment to see your surgeon Dr Hernandez in clinic in the next week. His office number is Stop taking hydrochlorothiazide until you are eating normally LAUREL THURMAN MD Apr 07, 2018 14:31
--- NOTE | 2018-04-07 14:33 | DS ---
Date/Time of Note Date/Time of Note DATE: 04/07/18 TIME: 14:31 Discharge Summary Admission/Discharge Info Admit Date/Time Apr 01, 2018 at 20:21 Discharge Date/Time Discharge Diagnosis Gall bladder pancreatitis Patient Condition: Stable Hospital Course Patient presented with mild pancreatitis. Deemed secondary to gall stones. Gen surg consulted who recommended cholecystectomy once her Eliquis wore off. Dr Whelan communicated with her primary physicians who deemed anticoagualtion for remote DVT was no longer necessary so this medication was stopped. She was treated for pancreatitis with IV fluids. She then underwent uncomplicated cholecystectomy. She was advised to follow up with Dr Hernandez as an outpatient Home Meds Active Scripts Apixaban* (Eliquis*) 5 Mg Tablet, 5 MG PO BID, #74 TAB take 2 tablets (10mg) twice daily for 7 days and then 1 tablet twice daily after that. Prov:SUYAPA WHELAN 01/11/18 Reported Medications Loratadine* (Loratadine*) 10 Mg Tablet, 10 MG PO DAILY, #30 TAB 01/08/18 Amlodipine Besylate* (Norvasc*) 10 Mg Tablet, 10 MG PO DAILY, TAB 01/08/18 Hydrochlorothiazide* (Hydrochlorothiazide*) 12.5 Mg Tablet, 12.5 MG PO DAILY, #30 TAB 01/08/18 Nitroglycerin* (Nitroglycerin* SL) 0.4 Mg Tab.subl, 0.4 MG SL Q5MIN PRN for C HEST PAIN, BOTTLE 01/08/18 Omeprazole* (Omeprazole*) 40 Mg Capsule.dr, 40 MG PO DAILY, #30 CAP 01/08/18 Gabapentin* (Gabapentin*) 100 Mg Capsule, 100 MG PO TID, #90 CAP 01/08/18 Carisoprodol* (Carisoprodol*) 350 Mg Tablet, 350 MG PO Q HS PRN for MUSCLE SPASMS, TAB 01/08/18 Follow-up Plan Make an appointment to see your surgeon Dr Hernandez in clinic in the next week. His office number is Stop taking hydrochlorothiazide until you are eating normally Primary Care Provider Not On Staff Doctor Pending Labs Laboratory Tests Test 04/07/18 11:37 Sodium Level 141 mmol/L (135-144) Potassium Level 3.0 mmol/L (3.5-5.1) Chloride Level 104 mmol/L (97-110) Carbon Dioxide Level 30 mmol/L (21-31) Anion Gap 7 (5-13) Blood Urea Nitrogen 5 mg/dl (7-20) Creatinine 0.55 mg/dl (0.44-1.00) Est Glomerular Filtrat Rate mL/min > 60 mL/min (>60) Glucose Level 104 mg/dl (70-220) Calcium Level 8.5 mg/dl (8.4-10.2) LAUREL THURMAN MD Apr 07, 2018 14:33
[2018-04-07] MEDS ORDERED: IBUPROFEN 400 MG TAB PO PRN (17:30)
[2018-04-07] MEDS ORDERED: NA PHOSPHATE/BIPHOS 133 ML ENEMA PR ONE (17:30)
--- NOTE | 2018-04-07 17:34 | PN ---
Date/Time of Note Date/Time of Note DATE: 04/07/18 TIME: 17:30 Assessment/Plan Lines/Catheters IV Catheter Type (from [facility]): Peripheral IV Waters in Place (from [facility]): No Assessment/Plan Chief Complaint/Hosp Course 1. GS pancreatitis: resolved 2. Cholelithiasis no evidence of cholecystitis; some nausea and vomiting -IS -ambulate -ice pack to abdominal wall -advance diet as tolerated -antiemetics prn -may will be discharged per medical team with follow-up in office in 1-2 weeks. 3. transaminitis: improving -as jarred 4. Abd pain: resolved, now with bloating -cruz mgt 5.lower extr dvt hx. on eliquis at home -Resumption of Eliquis per medical team 6. HTN -nutrition and medication optimization -encourage diet and exercise 7. GERD -nutrition and lifestyle optimization -antacids 8. Hypokalemia -optimize lytes 9. Constipation: -Optimize bowel regimen Thank you. Patient seen and examined in collaboration with Dr. Ramon Hernandez. Subjective 24 Hr Interval Summary Abdominal pain improved. Feels well. No fevers, chills, sob, congested cough, cp, palpitations, galeano, dizziness, nausea, vomiting, diarrhea, dysuria. Exam/Review of Systems Vital Signs Vitals Vital Signs Date Temp Pulse Resp B/P (MAP) Pulse Ox O2 O2 Flow FiO2 Time Delivery Rate 04/07/18 98.1 74 17 122/55 93 Room Air 08:48 (77) Intake and Output 04/06/18 04/06/18 04/07/18 1515:00 23:00 07:00 IntakeIntake Total 100 ml 1160 ml 1000 ml BalanceBalance 100 ml 1160 ml 1000 ml Exam Free Text/Dictation Constitutional: alert, oriented; No distress Psych: anxiety; No confusion Head: normocephalic, atraumatic Eyes: nl conjunctiva, EOMI, PERRL; No icteric ENMT: nl external ears & nose, nl lips & teeth, mucosa pink and moist Neck: supple, non-tender; No jvd Respiratory: normal air movement; No congested cough, No labored breathing, No wheezing Cardiovascular: regular rate and rhythm; No edema Gastrointestinal: soft, distended (min), NT, incision sites dry w/o drainage/discoloration/bruising No firm, No rebound or guarding Genitourinary - Female: nl external genitalia Musculoskeletal: nl extremities to inspection; No joint tenderness Extremities: normal pulses; No calf tenderness, No edema, No tenderness Neurological: nl mental status, nl speech, nl strength Skin: nl turgor; No rash or lesions, No diaphoresis Lymph: nl lymph nodes Results Result Diagram: 04/06/18 0612 04/07/18 1137 CADENCE HUMMEL NP Apr 07, 2018 17:34
--- NOTE | 2018-04-11 16:51 | EN ---
Date/Time of Note Date/Time of Note DATE: 04/11/18 TIME: 16:48 Event Note Medicine Medicine Event Note LATE PROGRESS NOTE DATE OF SERVICE: 04/05/18 SUBJECTIVE: NPO for surgery today General: Patient is laying in bed and answers questions appropriately Mentation: Patient is alert and oriented 4, Head: Normocephalic atraumatic Eyes: EOMI, pupils reactive to light Neck: Supple, nontender, midline Respiratory: Clear to auscultation bilaterally Cardiovascular: regular rate, no obvious murmurs Gastrointestinal: mildly distended, laparoscopic incisions covered with clean bandaids, hypoactive bs Neurological: Moves all extremities spontaneously Skin: No new skin lesions Assessment and plan 1. Recurrent Gallstone Pancreatitis: resolved 2. Cholelithiasis -lap sean planned for today -appreciate surgical input and mgt 3. Transaminitis -had improved, but increased again postop, patient did have liver biopsy likely causing this -MRCP was negative for choledocholithiasis -trend levels, I expect improvement 4. Lower extremity DVT history -I have spoken with patient's OP PCP Dr Conner and her OP plain clothes police officer Dr Camacho, patient was being treated for DVT diagnosed roughly 09/30 -No evidence or documentation to show this was more than one -all physicians are ok to stop all forms of anticoagulation for now, if anything changes, PCP will adjust therapy as indicated 5. Hypertension -on home meds 6. h/o GERD -Protonix PLAN: To OR today 04/05/18 0624 04/04/18 0555 Results 24hrs Laboratory Tests Test 04/05/18 06:24 White Blood Count 4.3 #L Red Blood Count 4.22 Hemoglobin 11.4 L Hematocrit 34.8 L Mean Corpuscular Volume 82.5 Mean Corpuscular Hemoglobin 27.0 L Mean Corpuscular Hemoglobin Concent 32.8 Red Cell Distribution Width 13.7 Platelet Count 208 Mean Platelet Volume 9.5 Immature Granulocytes % 0.200 Neutrophils % 47.5 Lymphocytes % 34.6 Monocytes % 12.4 H Eosinophils % 4.6 Basophils % 0.7 Nucleated Red Blood Cells % 0.0 Immature Granulocytes # 0.010 Neutrophils # 2.1 Lymphocytes # 1.5 Monocytes # 0.5 Eosinophils # 0.2 Basophils # 0.0 Nucleated Red Blood Cells # 0.0 Vital Signs Date Temp Pulse Resp B/P (MAP) Pulse Ox O2 O2 Flow FiO2 Time Delivery Rate 04/05/18 63 12:23 04/05/18 97.9 16 120/61 99 Room Air 11:22 (80) Intake and Output 04/04/18 04/04/18 04/05/18 1515:00 23:00 07:00 IntakeIntake Total 600 ml 400 ml BalanceBalance 600 ml 400 ml Results Results 24hrs Laboratory Tests Test 04/05/18 06:24 White Blood Count 4.3 #L Red Blood Count 4.22 Hemoglobin 11.4 L Hematocrit 34.8 L Mean Corpuscular Volume 82.5 Mean Corpuscular Hemoglobin 27.0 L Mean Corpuscular Hemoglobin Concent 32.8 Red Cell Distribution Width 13.7 Platelet Count 208 Mean Platelet Volume 9.5 Immature Granulocytes % 0.200 Neutrophils % 47.5 Lymphocytes % 34.6 Monocytes % 12.4 H Eosinophils % 4.6 Basophils % 0.7 Nucleated Red Blood Cells % 0.0 Immature Granulocytes # 0.010 Neutrophils # 2.1 Lymphocytes # 1.5 Monocytes # 0.5 Eosinophils # 0.2 Basophils # 0.0 Nucleated Red Blood Cells # 0.0 Medications Medication Current Medications Sodium Chloride 1,000 ml @ 125 mls/hr Q8H IV Last administered on 04/05/18at 04:32; Admin Dose 125 MLS/HR; Start 04/01/18 at 20:56 IV Flush (NS 3 ml) 3 ml PER PROTOCOL IV ; Start 04/01/18 at 21:00 Ondansetron HCl (Zofran Inj) 4 mg Q6H PRN IV NAUSEA/VOMITING; Start 04/01/18 at 21:00 Acetaminophen (Tylenol Supp) 650 mg Q6H PRN GA .PAIN 1-3 OR TEMP; Start 03/16 08/31 at 21:00 Hydralazine HCl (Apresoline) 10 mg Q4H PRN IV sbp >160; Start 04/01/18 at 21:00 Amlodipine Besylate (Norvasc) 10 mg DAILY PO Last administered on 04/05/18at 08:09; Admin Dose 10 MG; Start 04/02/18 at 10:30 Gabapentin (Neurontin) 100 mg TID PO Last administered on 04/05/18at 08:09; Adm in Dose 100 MG; Start 04/02/18 at 13:00 Hydrochlorothiazide (Hydrochlorothiazide) 12.5 mg DAILY PO Last administered on 04/05/18 08:08; Admin Dose 12.5 MG; Start 04/02/18 at 10:30 Fluticasone Propionate (Flonase 0.05% Nasal) 1 spray BID NASAL Last administered on 04/05/18 08:08; Admin Dose 1 SPRAY; Start 04/03/18 at 11:00 Pantoprazole (Protonix Tab) 40 mg DAILY@06 PO Last administered on 04/05/18 05:30; Admin Dose 40 MG; Start 04/04/18 at 06:00 Morphine Sulfate (morphine) 6 mg Q4H PRN PO PAIN 7-10; Start 04/03/18 at 17:00 Polyethylene Glycol (Miralax) 17 gm DAILY PO Last administered on 04/05/18 08:09; Admin Dose 17 GM; Start 04/04/18 at 16:00 SUYAPA WHELAN Apr 11, 2018 16:51
== END 2018-04-07 18:51 | disposition home or self-care (01) | DRG 417 ==
LOC: E/R 15:31 → TEL 20:21 → UNDODISIN 04-06 18:59 → PP2 04-06 19:27
PROVIDERS: ADMIT Internal Medicine; ATTEND Internal Medicine
PROC: 0FB04ZX Excision of Liver, Percutaneous Endoscopic Approach, Diagnostic (ICD-10-PCS; 2018-04-05)
PROC: 0FT44ZZ Resection of Gallbladder, Percutaneous Endoscopic Approach (ICD-10-PCS; principal; 2018-04-05 19:00)
DX: K80.20 Calculus of gallbladder without cholecystitis without obstruction (principal); K85.10 Biliary acute pancreatitis without necrosis or infection; Z86.718 Personal history of other venous thrombosis and embolism; Z79.02 Long term (current) use of antithrombotics/antiplatelets; I10 Essential (primary) hypertension; K21.9 Gastro-esophageal reflux disease without esophagitis; K76.9 Liver disease, unspecified
CPT/HCPCS: 36415; 71045; 74177; 74181; 76705; 80048; 80053; 80061; 81003; 82150; 83690; 83735; 84484; 85025; 85610; 85730; 87040; 87086; 88304; 88307; 88313; 93970; 96361; 96374; 96375; C9113; J0690; J1100; J1170; J2175; J2250; J2270; J2405; J2765; J2795; J3010; J3480; J7030; Q9967